=== PATIENT | male | born 1975 | race Caucasian/White ===

== ENCOUNTER → 2017-11-14 | Outpatient (CLI) | payer BC ==
[2017-11-14 11:59] VITALS: BMI 33.7
== END ==
LOC: MNTWWP 09:07
PROVIDERS: ATTEND Internal Medicine
DX: E66.3 Overweight (principal); Z68.33 Body mass index [BMI] 33.0-33.9, adult
CPT/HCPCS: 97802

== ENCOUNTER 2018-07-22 05:55 | Emergency (ER) | payer BC ==
[2018-07-22 06:59] LABS: Appearance,Urine Clear (Clear); Bacteria,Urine Rare /hpf; Bilirubin,Urine Negative (Negative); Blood,Urine Small (Negative); Calcium Oxalate Crystals,Urine Few /hpf; Color,Urine Yellow; Glucose,Urine (UA) Negative (Negative); Ketones,Urine Negative (Negative); Leukocyte Esterase,Urine Negative (Negative); Mucus,Urine Moderate /hpf; Nitrite,Urine Negative (Negative); Protein,Urine Trace (Negative); RBC,Urine 16 /hpf (0-5); Specific Gravity,Urine 1.026 (1.001-1.035); Squamous Epithelial Cell,Urine 1 /hpf (0-4)
[2018-07-22 07:20] LABS: ALT 124 U/L (21-72); AST 166 U/L (17-59); Albumin 3.4 g/dL (3.5-5.0); Alkaline Phosphatase 192 U/L (38-126); Amylase 57 U/L (30-110); Anion Gap 3 mmol/L; Blood Urea Nitrogen 14 mg/dL (9-20); Calcium 8.7 mg/dL (8.4-10.2); Carbon Dioxide 24 mmol/L (22-30); Chloride 111 mmol/L (98-107); Glucose 127 mg/dL (74-99); Lipase 165 U/L (23-300); Potassium 4.1 mmol/L (3.5-5.1); Sodium 138 mmol/L (137-145); Total Bilirubin 2.2 mg/dL (0.2-1.3); Total Protein 6.7 g/dL (6.3-8.2)
[2018-07-22] MEDS ORDERED: HYDROmorphone 1 MG/ML 1 ML SYRINGE IVP STA (07:24)
[2018-07-22] MEDS ORDERED: ONDANSETRON 4 MG/2 ML VIAL IVP STA (07:24)
[2018-07-22] MEDS ORDERED: KETOROLAC 60 MG/2 ML VIAL IVP STA (07:24)
--- NOTE | 2018-07-22 07:24 | XR ---
EXAMINATION TYPE: XR KUB DATE OF EXAM: 07/22/2018 COMPARISON: NONE HISTORY: Left lower quadrant pain TECHNIQUE: One view abdominal series FINDINGS: The osseous structures are intact. The bowel gas pattern is nonspecific. Lung bases are clear. Calc ification overlying the right upper quadrant may represent renal stone. Arthropathy of the hips. IMPRESSION: 1. Nonspecific abdomen with no evidence of obstruction. 2. Right-sided renal calculus suspected. Measuring approximately 5 mm.
--- NOTE | 2018-07-22 07:29 | ED ---
General Adult HPI - General Chief complaint: Abdominal Pain Stated complaint: Lt side of abd pain, groin area pain Time Seen by Provider: 07/22/18 07:00 Source: patient, RN notes reviewed Mode of arrival: ambulatory Limitations: no limitations - History of Present Illness Initial comments: This is a 43-year-old male who comes in complaining of left-sided flank pain radiating to the left testicle. Patient states it started at 2:00 in the morning and the pain is always there but on occasion he gets much worse. Patient states he vomited times one at home and continues to be mildly nauseated. Patient states she's never brings anything like this in the past. Patient states that he is having urinary frequency. Patient denies any hematuria that is noted. Patient states some of the pain does radiate to his back. Patient denies any diarrhea. Patient denies any patient states she does have ulcers colitis. Patient denies any chest pain difficulty breathing first breath per patient denies any recent fever or chills. Patient denies any dysuri a. - Related Data Home Medications Medication Instructions Recorded Confirmed Mesalamine [Lialda] 2.4 gm PO DAILY 10/01/13 07/22/18 Ursodiol 600 mg PO DAILY 10/01/13 07/22/18 Ascorbic Acid [Vitamin C] 500 mg PO DAILY 07/22/18 07/22/18 Calcium Citrate 250 mg PO DAILY 07/22/18 07/22/18 Diphenox-Atrop 2.5-0.025 mg 2 tab PO QID PRN 07/22/18 07/22/18 [Lomotil] Previous Rx's Medication Instructions Recorded Ketorolac [Toradol] 10 mg PO Q6HR #15 tab 07/22/18 Tamsulosin [Flomax] 0.4 mg PO DAILY #5 cap 07/22/18 Allergies Allergy/AdvReac Type Severity Reaction Status Date / Time metronidazole [From Flagyl] Allergy Rash/Hives Verified 07/22/18 07:27 Review of Systems ROS Statement: Those systems with pertinent positive or pertinent negative responses have been documented in the HPI. ROS Other: All systems not noted in ROS Statement are negative. Past Medical History Past Medical History: Blood Disorder, Liver Disease Additional Past Medical History / Comment(s): PRIMARY SCLEROSING CHOANGITIS, CIRRHOSIS. ITP. ULCERATIVE COLITIS. History of Any Multi-Drug Resistant Organisms: None Reported Additional Past Surgical History / Comment(s): CARMELO. RECTAL ABSCESS Past Anesthesia/Blood Transfusion Reactions: No Reported Reaction Past Psychological History: No Psychological Hx Reported Smoking Status: Former smoker Past Alcohol Use History: None Reported Past Drug Use History: None Reported General Exam - General Exam Comments Initial Comments: GENERAL: Patient is well-developed and well-nourished. Patient is nontoxic and well- hydrated and is in moderate distress. ENT: Neck is soft and supple. No significant lymphadenopathy is noted. Oropharynx is clear. Moist mucous membranes. Neck has full range of motion without eliciting any pain. EYES: The sclera were anicteric and conjunctiva were pink and moist. Extraocular movements were intact and pupils were equal round and reactive to light. Eyelids were unremarkable. PULMONARY: Unlabored respirations. Good breath sounds bilaterally. No audible rales rhonchi or wheezing was noted. CARDIOVASCULAR: There is a regular rate and rhythm without any murmurs gallops or rubs. ABDOMEN: Patient has left-sided abdominal pain on palpation there is no rebound. Patient also has some left-sided CVA tenderness SKIN: Skin is clear with no lesions or rashes and otherwise unremarkable. NEUROLOGIC: Patient is alert and oriented x3. Cranial nerves II through XII are grossly intact. Motor and sensory are also intact. Normal speech, volume and content. Symmetrical smile. MUSCULOSKELETAL: Normal extremities with adequate strength and full range of motion. No lower extremity swelling or edema. No calf tenderness. LYMPHATICS: No significant lymphadenopathy is noted PSYCHIATRIC: Normal psychiatric evaluation. Limitations: no limitations Course Vital Signs 07/22/18 05:59 Temperature 98.0 F Pulse Rate 80 Respiratory 20 Rate Blood Pressure 133/76 O2 Sat by Pulse 97 Oximetry Medical Decision Making - Medical Decision Making Patient's CT showed a 3 mm stone with hydronephrosis and hydroureter. Patient also has cirrhosis which she is aware of an hourly being followed by a hep atologist. I will begin to reevaluate the patient he was pain-free at this time. - Lab Data Result diagrams: 07/22/18 06:40 07/22/18 06:40 Lab Results 07/22/18 07/22/18 07/22/18 Range/Units 06:26 06:40 06:40 WBC 6.1 (3.8-10.6) k/uL RBC 4.71 (4.30-5.90) m/uL Hgb 14.2 (13.0-17.5) gm/dL Hct 41.8 (39.0-53.0) % MCV 88.8 (80.0-100.0) fL MCH 30.2 (25.0-35.0) pg MCHC 34.1 (31.0-37.0) g/dL RDW 14.4 (11.5-15.5) % Plt Count 243 (150-450) k/uL Neutrophils % 83 % Lymphocytes % 7 % Monocytes % 8 % Eosinophils % 1 % Basophils % 0 % Neutrophils # 5.1 (1.3-7.7) k/uL Lymphocytes # 0.4 L (1.0-4.8) k/uL Monocytes # 0.5 (0-1.0) k/uL Eosinophils # 0.1 (0-0.7) k/uL Basophils # 0.0 (0-0.2) k/uL Sodium 138 (137-145) mmol/L Potassium 4.1 (3.5-5.1) mmol/L Chloride 111 H (98-107) mmol/L Carbon Dioxide 24 (22-30) mmol/L Anion Gap 3 mmol/L BUN 14 (9-20) mg/dL Creatinine 0.92 (0.66-1.25) mg/dL Est GFR (CKD-EPI)AfAm >90 (>60 ml/min/1.73 sqM) Est GFR (CKD-EPI)NonAf >90 (>60 ml/min/1.73 sqM) Glucose 127 H (74-99) mg/dL Calcium 8.7 (8.4-10.2) mg/dL Total Bilirubin 2.2 H (0.2-1.3) mg/dL AST 166 H (17-59) U/L ALT 124 H (21-72) U/L Alkaline Phosphatase 192 H (38-126) U/L Total Protein 6.7 (6.3-8.2) g/dL Albumin 3.4 L (3.5-5.0) g/dL Amylase 57 (30-110) U/L Lipase 165 (23-300) U/L Urine Color Yellow Urine Appearance Clear (Clear) Urine pH 6.0 (5.0-8.0) Ur Specific [place] 1.026 (1.001-1.035) Urine Protein Trace H (Negative) Urine Glucose (UA) Negative (Negative) Urine Ketones Negative (Negative) Urine Blood Small H (Negative) Urine Nitrite Negative (Negative) Urine Bilirubin Negative (Negative) Urine Urobilinogen 3.0 (<2.0) mg/dL Ur Leukocyte Esterase Negative (Negative) Urine RBC 16 H (0-5) /hpf Urine WBC 3 (0-5) /hpf Ur Squamous Epith Cells 1 (0-4) /hpf Calcium Oxalate Crystal Few H (None) /hpf Urine Bacteria Rare H (None) /hpf Urine Mucus Moderate H (None) /hpf Disposition Clinical Impression: Kidney stone Disposition: HOME SELF-CARE Condition: Good Instructions (If sedation given, give patient instructions): Kidney Stones (ED) Prescriptions: Tamsulosin [Flomax] 0.4 mg PO DAILY #5 cap Ketorolac [Toradol] 10 mg PO Q6HR #15 tab Is patient prescribed a controlled substance at d/c from ED?: No Referrals: Aneudy Bowers MD [Primary Care Provider] - 1-2 days Time of Disposition: 08:46
[2018-07-22 07:42] LABS: Basophils % (A) 0 %; Eosinophils # (A) 0.1 k/uL (0-0.7); Eosinophils % (A) 1 %; HCT 41.8 % (39.0-53.0); HGB 14.2 gm/dL (13.0-17.5); Lymphocytes # (A) 0.4 k/uL (1.0-4.8); Lymphocytes % (A) 7 %; MCH 30.2 pg (25.0-35.0); MCHC 34.1 g/dL (31.0-37.0); MCV 88.8 fL (80.0-100.0); Monocytes # (A) 0.5 k/uL (0-1.0); Monocytes % (A) 8 %; Neutrophils # (A) 5.1 k/uL (1.3-7.7); Neutrophils % (A) 83 %; Platelet Count 243 k/uL (150-450); RBC 4.71 m/uL (4.30-5.90); RDW 14.4 % (11.5-15.5); WBC 6.1 k/uL (3.8-10.6)
--- NOTE | 2018-07-22 08:01 | CT ---
EXAMINATION TYPE: CT abdomen pelvis wo con DATE OF EXAM: 07/22/2018 COMPARISON: None HISTORY: Lt side abd pain and Lt groin pain CT DLP: 938.4 mGycm Automated exposure control for dose reduction was used. TECHNIQUE: Helical acquisition of images was performed from the lung bases through the pelvis. FINDINGS: LUNG BASES: Subsegmental changes at both lung bases. Most likely in the basis of atelectasis. LIVER/GB: Liver is lobulated correlate for cirrhosis. Numerous dilated structures in the abdomen are likely related to varices rather than adenopathy however, no contrast was given. PANCREAS: No significant abnormality is seen. SPLEEN: Spleen is enlarged measuring 19 cm compatible with splenomegaly. ADRENALS: No significant abnormality is seen. KIDNEYS: There are 4 calculi involving the right kidney measuring less than 5 mm and a single punctat e calculus measuring less than 5 mm within the left kidney. There is mild left hydronephrosis and hyd roureter with a 3 mm distal UVJ calcification. ADENOPATHY: None visualized. OSSEOUS STRUCTURES: Arthropathy of the hips. BOWEL: No significant abnormality is seen. OTHER: Aorta of normal caliber. Small fat-containing periumbilical hernia. IMPRESSION: 1. Bilateral nephrolithiasis with mild left hydronephrosis and hydroureter secondary to a distal left ureteral calculus measuring 3 mm. 2. Findings suspicious for hepatic cirrhosis with splenomegaly and large soft tissue masses within th e abdomen likely in the basis of large varices which could be confirmed with postcontrast CT as clini suresh warranted.
[2018-07-22 08:53] VITALS: BP 164/69; PULSE 79; RESP 18; TEMP 97.3
== END 2018-07-22 08:54 | disposition home or self-care (01) ==
LOC: EC 05:55
DX: N13.2 Hydronephrosis with renal and ureteral calculous obstruction (principal); Z87.891 Personal history of nicotine dependence; Z79.899 Other long term (current) drug therapy; Z88.1 Allergy status to other antibiotic agents
CPT/HCPCS: 99284; 96374; 96375 ×2; 36415; 80053; 82150; 83690; 85025; 81001; 74018; 74176; J2405; J1885; J1170

== ENCOUNTER → 2018-08-31 | Outpatient (CLI) | payer BC ==
[2018-08-31 10:15] LABS: INR 1.2 (<1.2); Prothrombin Time 12.3 sec (9.0-12.0)
== END ==
LOC: LABWHC1 09:27
PROVIDERS: ATTEND Surgery
DX: D17.1 Benign lipomatous neoplasm of skin and subcutaneous tissue of trunk (principal)
CPT/HCPCS: 36415; 85610

== ENCOUNTER 2018-09-04 08:46 | Day surgery (SDC) | payer BC ==
[2018-09-03 09:09] VITALS: BMI 33.0
[~2018-09-04 08:46] MED LIST: DEXAMETHASONE SOD PHOSPHATE 10 MG/ML 1 ML VIAL IV ONE; HEPARIN SODIUM,PORCINE 5,000 UNIT/ML 1 ML VIAL SQ ONE; LACTATED RINGERS 1,000 ML IV SCH; LIDOCAINE 1% 20 ML VIAL (10MG/ML) FOR IV START INTRADERMA PRN; MIDAZOLAM 2 MG/2 ML VIAL IV PRN; ONDANSETRON 4 MG/2 ML VIAL IVP ONE; Pre Op ABX Message 1 EACH MISC MISCELLANE ONE; fentaNYL (PF) 50 MCG/ML 2 ML AMP IV PRN
[2018-09-04 09:20] VITALS: RESP 16
--- NOTE | 2018-09-04 09:47 | P.GSHP ---
History of Present Illness H&P Date: 09/04/18 Chief Complaint: Multiple lipomas 43-year-old male seen in the office approximately one month ago. Patient's complaints of multiple lipomas. He has had many removed in the past. They're increasing in size and painful. Past Medical History Past Medical History: Blood Disorder, Liver Disease Additional Past Medical History / Comment(s): PRIMARY SCLEROSING CHOANGITIS, CIRRHOSIS. ITP. ULCERATIVE COLITIS. History of Any Multi-Drug Resistant Organisms: None Reported Additional Past Surgical History / Comment(s): LASIK. RECTAL ABSCESS Past Anesthesia/Blood Transfusion Reactions: No Reported Reaction Smoking Status: Never smoker - Past Family History Mother Family Medical History: No Reported History Medications and Allergies Home Medications Medication Instructions Recorded Confirmed Type Mesalamine [Lialda] 2.4 gm PO DAILY 10/01/13 09/04/18 History Ursodiol 600 mg PO DAILY 10/01/13 09/04/18 History Ascorbic Acid [Vitamin C] 500 mg PO DAILY 07/22/18 09/04/18 History Calcium Citrate 250 mg PO DAILY 07/22/18 09/04/18 History Allergies Allergy/AdvReac Type Severity Reaction Status Date / Time metronidazole [From Flagyl] Allergy Rash/Hives Verified 09/04/18 09:03 Surgical - Exam Vital Signs Temp Pulse Resp BP Pulse Ox 97.4 F L 66 16 154/69 99 09/04/18 09:19 09/04/18 09:19 09/04/18 09:19 09/04/18 09:19 09/04/18 09:19 Physical exam: General: Well-developed, well-nourished HEENT: Normocephalic, sclerae nonicteric Abdomen: Nontender, nondistended Extremities: No edema, multiple lipomatous masses involving the extremities and torso ranging in size from 1-5 cm Neuro: Alert and oriented Assessment and Plan (1) Lipoma Narrative/Plan: Will proceed with lipoma excision. Exact site of lipomas will be marked preoperatively. Risks of bleeding infection and recurrence reviewed. He understands and wishes to proceed. Current Visit: Yes Status: Acute Code(s): D17.9 - BENIGN LIPOMATOUS NEOPLASM, UNSPECIFIED SNOMED Code(s): 15864878
[2018-09-04] MEDS ORDERED: MIDAZOLAM 2 MG/2 ML VIAL ONE (10:25)
[2018-09-04] MEDS ORDERED: PROPOFOL 10 MG/ML 20 ML VIAL IV ONE (10:25)
[2018-09-04] MEDS ORDERED: fentaNYL (PF) 50 MCG/ML 2 ML AMP ONE (10:25)
[2018-09-04] MEDS: HYDROmorphone 0.5 MG/0.5 ML SYRINGE IVP PRN ×5 (12:34→13:10)
[2018-09-04] MEDS ORDERED: NALOXONE 0.4 MG/ML 1 ML VIAL IV PRN (12:35)
[2018-09-04] MEDS ORDERED: HYDROcodone/APAP 5-325MG 1 EACH TAB PO PRN (12:35)
[2018-09-04 12:40] VITALS: TEMP 96.9
--- NOTE | 2018-09-04 12:43 | P.OP ---
Date of Procedure: 09/04/18 Procedure(s) Performed: PREOPERATIVE DIAGNOSIS: Multiple lipomas POSTOPERATIVE DIAGNOSIS: Same PROCEDURE: Excision multiple lipomas with intermediate closure SURGEON: Mariano EBL: 20 mL ANESTHESIA: Gen. COMPLICATIONS: None OPERATIVE PROCEDURE: Patient placed in the supine position. The patient's bilateral arms and anterior torso were prepped and draped sterilely. All of the lipomas were excised using a longitudinal incision over the palpable mass with subcutaneous dissection taking place bluntly and with sparing use of electrocautery. At all sites the intermediate closure took place by reapproximated the subcutaneous tissues using 3-0 Vicryl sutures. The skin was closed at all sites using 4-0 Monocryl sutures. All of the sites were closed using interrupted sutures with the exception of the abdominal wall larger lipoma closed using a running 4-0 Monocryl stitch. Abdominal wall had 2 lipomas r emoved one measuring 5 x 3 cm the other measuring 1.5 x 1.5 cm a chest lipoma was removed measuring 3.5 x 2 cm. Left upper arm had 3 lipomas 2 x 1.5 cm, 2 x 2 centimeter, 2.5 x 1 cm. The left forearm had 2 lipomas 1.5 x 1.5 cm, 3 x 1.5 cm. The right upper arm had 2 lipomas 2 x 1.5cm, 2 x 3 cm. The right forearm at 5 lipomas 2 x 1 cm, 3 x 2 cm, 4 x 3 cm, 1.5 x 1.5 cm, 2 x 2 centimeters. Intermediate closure 24 cm on the arms, 6.5 cm on the chest and abdomen. Skin glue use at all incision sites. DISPOSITION: Stable to recovery room
[2018-09-04] MEDS ORDERED: KETOROLAC 30 MG/ML 1 ML VIAL IVP ONE (14:02)
[2018-09-04] MEDS ORDERED: LACTATED RINGERS 1,000 ML IV ONE (14:11)
[2018-09-04 14:54] VITALS: BP 164/80; PULSE 64
== END 2018-09-04 14:56 | disposition home or self-care (01) ==
LOC: OR 08:46
PROVIDERS: ATTEND Surgery
DX: D17.1 Benign lipomatous neoplasm of skin and subcutaneous tissue of trunk (principal); D17.22 Benign lipomatous neoplasm of skin and subcutaneous tissue of left arm; D17.21 Benign lipomatous neoplasm of skin and subcutaneous tissue of right arm; K51.90 Ulcerative colitis, unspecified, without complications; K83.01 Primary sclerosing cholangitis; Z79.899 Other long term (current) drug therapy; Z88.1 Allergy status to other antibiotic agents
CPT/HCPCS: 11406; 12037; 88304; J2250; J1644; J1100; J2405; J0690; J3010; J1885; J2704; J1170

== ENCOUNTER 2018-10-30 08:25 | Day surgery (SDC) | payer BC ==
[2018-10-29 13:25] VITALS: BMI 32.7
[2018-10-30 08:47] VITALS: TEMP 97.5
[2018-10-30] MEDS ORDERED: LIDOCAINE 1% 20 ML VIAL (10MG/ML) FOR IV START INTRADERMA ONE (08:53)
[2018-10-30] MEDS: LACTATED RINGERS 1,000 ML IV SCH ×2 (08:55→09:27)
[2018-10-30] MEDS ORDERED: PROPOFOL 10 MG/ML 20 ML VIAL IV ONE (09:28)
[2018-10-30] MEDS ORDERED: LIDOCAINE 1% INJ 10MG/ML (20 ML MDV) ONE (09:28)
--- NOTE | 2018-10-30 09:48 | P.PCN ---
Date of Procedure: 10/30/18 Procedure(s) Performed: Brief history: Patient is a pleasant 43-year-old white female, scheduled for an elective upper endoscopy as well as colonoscopy as a part of evaluation of long-standing history of ulcerative colitis and history of liver cirrhosis related to primary sclerosing cholangitis diagnosed a few years ago. He scheduled for an upper endoscopy as part of screening for esophageal varices Procedure performed: Esophagogastroduodenoscopy with biopsy Colonoscopy with random biopsy Preoperative diagnosis: Cirrhosis of the liver/screening for esophageal varices Long-standing history of ulcerative colitis Anesthesia: MAC Procedure: After informed consent was obtained from the patient was brought into the endoscopy unit and IV sedation was administered by anesthesia under continuous monitoring. Initially upper endoscopy was done. The Olympus GF 160 video endoscope was inserted inserted into the mouth and esophagus intubated without any difficulty and was gradually advanced into the stomach and duodenum and carefully examined. The bulb and second part of the duodenum appeared normal. The scope was then withdrawn into the stomach adequately insufflated with air and upon careful examination the antrum had mild gastritis and biopsies were done from this area. The body, cardia and fundus appeared normal. The scope was then withdrawn into the esophagus. The GE junction was located at 40 cm to the incisors. It appeared regular with no erythema erosions or ulcerations. Rest of the esophagus appeared normal. no evidence of esophageal varices. Patient tolerated the procedure well. At this time the patient continued to remain sedation. Initial digital rectal examination was normal. Olympus CF 160 video colonoscope was then inserted into the rectum and gradually advanced to the cecum without any difficulty. Careful examination was performed as the scope was gradually being withdrawn. The prep was excellent. The cecum, ascending colon, transverse colon, descending colon, sigmoid colon and rectum appeared normal. and biopsies were done from the cecum to rectum at every 10 cm intervals to rule out dysplasia. Retroflexion was performed in the rectum and no lesions were noted. Patient tolerated the procedure well. Impression: 1. Upper endoscopy revealed mild antral gastritis but no evidence of esophageal or gastric varices 2. Colonoscopy was essentially within normal limits with no evidence of active colitis or colorectal neoplasia Recommendations: Findings of this examination were discussed with the patient as well as his family. He was advised to follow with the biopsy results. If the biopsy does not show any evidence of dysplasia he can have a repeat colonoscopy in 2 years.
[2018-10-30 10:18] VITALS: BP 116/72; PULSE 71; RESP 16
== END 2018-10-30 11:07 | disposition home or self-care (01) ==
LOC: ORWHC2ENDO 08:25
PROVIDERS: ATTEND Internal Medicine Gastroenterology
DX: K52.9 Noninfective gastroenteritis and colitis, unspecified (principal); K29.50 Unspecified chronic gastritis without bleeding; K83.09 Other cholangitis; K74.60 Unspecified cirrhosis of liver; Z87.19 Personal history of other diseases of the digestive system; Z88.3 Allergy status to other anti-infective agents
CPT/HCPCS: 88305; 45380; 43239; J2001; J2704

== ENCOUNTER 2020-05-19 09:20 | Day surgery (SDC) | payer BC ==
[2020-05-17 15:41] VITALS: BMI 28.3
[2020-05-19 09:53] VITALS: TEMP 98.1
[2020-05-19] MEDS ORDERED: LIDOCAINE 1% (10MG/ML) FOR IV START INTRADERMA ONE (09:54)
[2020-05-19] MEDS ORDERED: LACTATED RINGERS 1,000 ML IV ONE (09:54)
[2020-05-19] MEDS ORDERED: LIDOCAINE 1% INJ 10MG/ML (20 ML MDV) ONE (10:10)
[2020-05-19] MEDS ORDERED: PROPOFOL 10 MG/ML 20 ML VIAL IV ONE (10:10)
--- NOTE | 2020-05-19 10:35 | P.PCN ---
Date of Procedure: 05/19/20 Procedure(s) Performed: Brief history: Patient is a pleasant 45-year-old white male scheduled for an elective upper endoscopy as well as colonoscopy as a part of evaluation of long-standing history of ulcerative colitis and history of primary sclerosing cholangitis last/liver cirrhosis. Last colonoscopy was one and a half years ago. Procedure performed: Esophagogastroduodenoscopy Colonoscopy with random biopsy Preoperative diagnosis: Primary sclerosing cholangitis/cirrhosis of the liver/screening for esophageal varices Long-standing history of ulcerative colitis Anesthesia: MAC Procedure: After informed consent was obtained from the patient was brought into the endoscopy unit and IV sedation was administered by anesthesia under continuous monitoring. Initially upper endoscopy was done. The Olympus GF 160 video endoscope was inserted inserted into the mouth and esophagus intubated without any difficulty and was gradually advanced into the stomach and duodenum and carefully examined. The bulb and second part of the duodenum appeared normal. The scope was then withdrawn into the stomach adequately insufflated with air and upon careful examination the antrum and body, cardia and fundus appeared normal. The scope was then withdrawn into the esophagus. The GE junction was l ocated at 40 cm to the incisors. It appeared regular with no erythema erosions or ulcerations. Rest of the esophagus appeared normal. Patient tolerated the procedure well. At this time the patient continued to remain sedation. Initial digital rectal examination was normal. Olympus CF 160 video colonoscope was then inserted into the rectum and gradually advanced to the cecum without any difficulty. Careful examination was performed as the scope was gradually being withdrawn. The prep was excellent. The cecum, ascending colon, transverse colon, descending colon, sigmoid colon and rectum appeared normal. Random biopsies were done from the cecum to rectum at every 10 cm intervals. Retroflexion was performed in the rectum and no lesions were noted. Patient tolerated the procedure well. Impression: 1. Upper endoscopy revealed no evidence of gastric or esophageal varices. 2. Colonoscopy was within normal limits with no evidence of active colitis or colorectal neoplasia Recommendations: Findings of this examination were discussed with the patient as well as his family. He was advised to follow with the biopsy results. If the biopsy doesn't show any evidence of dysplasia he can have a repeat colonoscopy in, one year as part of surveillance of ulcerative colitis in the setting of primary sclerosing cholangitis.
[2020-05-19 11:01] VITALS: BP 136/72; PULSE 74; RESP 16
== END 2020-05-19 11:08 | disposition home or self-care (01) ==
LOC: ORWHC2ENDO 09:20
PROVIDERS: ATTEND Internal Medicine Gastroenterology
DX: K51.90 Ulcerative colitis, unspecified, without complications (principal); K83.01 Primary sclerosing cholangitis; K74.60 Unspecified cirrhosis of liver; Z88.1 Allergy status to other antibiotic agents; Z79.1 Long term (current) use of non-steroidal anti-inflammatories (NSAID); Z79.899 Other long term (current) drug therapy; Z86.2 Personal history of diseases of the blood and blood-forming organs and certain disorders involving the immune mechanism
CPT/HCPCS: 88305; 45380; 43235; J2001; J2704

== ENCOUNTER 2022-01-28 07:16 | Day surgery (SDC) | payer BC ==
[~2022-01-28 07:16] MED LIST changes: +ACETAMINOPHEN TAB 500 MG TAB PO PRN; -DEXAMETHASONE SOD PHOSPHATE 10 MG/ML 1 ML VIAL IV ONE; +DEXAMETHASONE SOD PHOSPHATE 4 MG/ML 1 ML VIAL IV ONE; -HEPARIN SODIUM,PORCINE 5,000 UNIT/ML 1 ML VIAL SQ ONE; +HEPARIN SODIUM,PORCINE/PF 5,000 UNIT/0.5 ML SYRINGE SQ PRN; +LIDOCAINE 1% (10MG/ML) FOR IV START INTRADERMA PRN; -LIDOCAINE 1% 20 ML VIAL (10MG/ML) FOR IV START INTRADERMA PRN; -MIDAZOLAM 2 MG/2 ML VIAL IV PRN; -fentaNYL (PF) 50 MCG/ML 2 ML AMP IV PRN
--- NOTE | 2022-01-28 07:46 | P.GSHP ---
History of Present Illness H&P Date: 01/28/22 Chief Complaint: Lipoma 46-year-old male known to our service. History of multiple lipoma excision 2019. Patient with history of cirrhosis. Says he has been having increased pain left upper quadrant. He has an enlarged spleen measuring approximately 23 cm. He does have lipomas in the abdominal wall that are tender. He has had low platelets in the past. Patient also describes lipomas in the posterior neck, chest, abdomen, upper and lower extremities. Past Medical History Past Medical History: Blood Disorder, Liver Disease Additional Past Medical History / Comment(s): PRIMARY SCLEROSING CHOANGITIS, CIRRHOSIS. ITP. ULCERATIVE COLITIS. History of Any Multi-Drug Resistant Organisms: None Reported Additional Past Surgical History / Comment(s): dilip eye -LASIK surgery. RECTAL ABSCESS(boil), limpoma removed from mult areas, Past Anesthesia/Blood Transfusion Reactions: No Reported Reaction Additional Past Anesthesia/Blood Transfusion Reaction / Comment(s): no hx blood transfusion Smoking Status: Former smoker - Past Family History Mother Family Medical History: No Reported History Medications and Allergies Home Medications Medication Instructions Recorded Confirmed Type Mesalamine [Lialda] 2.4 gm PO DAILY 10/01/13 05/17/20 History Ursodiol 300 mg PO BID 10/01/13 05/19/20 History Ascorbic Acid [Vitamin C] 1,000 mg PO DAILY 07/22/18 05/17/20 History Calcium Citrate/Vitamin D3 1 each PO DAILY 10/29/18 05/17/20 History [Calcitrate + Vit D Caplet] Allergies Allergy/AdvReac Type Severity Reaction Status Date / Time metronidazole [From Flagyl] Allergy Rash/Hives Verified 05/17/20 15:34 Surgical - Exam Physical exam: General: Well-developed, well-nourished HEENT: Normocephalic, sclerae nonicteric, posterior midline neck with 1.5-2 cm lipomatous mass Chest: Multiple lipomatous masses Abdomen: Nontender, nondistended, multiple lipomatous masses Extremities: No edema, multiple lipomatous masses Neuro: Alert and oriented Assessment and Plan (1) Lipoma Narrative/Plan: 46-year-old male with symptomatic enlarging lipomatous masses. We'll proceed with surgical excision at this time. Patient I will radha out and delineate which lipomatous masses we will excise and this will be documented in the patient's medical record. Risks of bleeding, infection, pain, scarring, recurrence reviewed. He understands and wishes to proceed Current Visit: No Status: Acute Code(s): D17.9 - BENIGN LIPOMATOUS NEOPLASM, UNSPECIFIED SNOMED Code(s): 12070434
[2022-01-28 08:28] VITALS: RESP 16; TEMP 98.3
[2022-01-28 08:31] LABS: Basophils % (A) 1 %; Eosinophils # (A) 0.2 k/uL (0-0.7); Eosinophils % (A) 4 %; HCT 39.1 % (39.0-53.0); HGB 14.4 gm/dL (13.0-17.5); Lymphocytes # (A) 0.8 k/uL (1.0-4.8); Lymphocytes % (A) 18 %; MCH 32.8 pg (25.0-35.0); MCHC 36.9 g/dL (31.0-37.0); MCV 88.9 fL (80.0-100.0); Mean Platelet Volume 7.6; Monocytes # (A) 0.3 k/uL (0-1.0); Monocytes % (A) 7 %; Neutrophils # (A) 3.1 k/uL (1.3-7.7); Neutrophils % (A) 68 %; Platelet Count 278 k/uL (150-450); RBC 4.39 m/uL (4.30-5.90); WBC 4.6 k/uL (3.8-10.6)
[2022-01-28] MEDS ORDERED: LACTATED RINGERS 1,000 ML IV ONE ×2 (08:31→10:20)
[2022-01-28 08:44] LABS: INR 1.2 (<1.2); Prothrombin Time 12.9 sec (9.0-12.0)
[2022-01-28] MEDS ORDERED: ROCURONIUM 10 MG/ML (5 ML VIAL) IV ONE (08:50)
[2022-01-28] MEDS ORDERED: GLYCOPYRROLATE 0.2 MG/ML 2 ML VIAL ONE (08:50)
[2022-01-28] MEDS ORDERED: PROPOFOL 10 MG/ML 20 ML VIAL IV ONE (08:50)
[2022-01-28] MEDS ORDERED: MIDAZOLAM 2 MG/2 ML VIAL ONE (08:50)
[2022-01-28] MEDS ORDERED: LIDOCAINE 2% INJ 20 MG/ML (2 ML VIAL) ONE (08:50)
[2022-01-28] MEDS ORDERED: fentaNYL (PF) 50 MCG/ML 2 ML AMP ONE (08:50)
[2022-01-28] MEDS ORDERED: SUCCINYLCHOLINE CHLORIDE 200 MG/10 ML VIAL IV ONE (08:50)
[2022-01-28] MEDS ORDERED: NEOSTIGMINE 1 MG/ML 10 ML VIAL ONE (08:50)
[2022-01-28] MEDS ORDERED: SODIUM CHLORIDE 0.9% 100 ML with ceFAZolin 2 GM IV ONE ×2 (08:53)
[2022-01-28] MEDS ORDERED: BUPIVACAINE (PF) 0.25% 30 ML VIAL SQ ONE (09:31)
[2022-01-28] MEDS ORDERED: NALOXONE 0.4 MG/ML 1 ML VIAL IV PRN (10:37)
[2022-01-28] MEDS ORDERED: traMADol 50 MG TAB PO PRN (10:37)
[2022-01-28] MEDS: HYDROmorphone 0.5 MG/0.5 ML SYRINGE IVP PRN ×2 (10:42→11:05)
--- NOTE | 2022-01-28 10:50 | P.OP ---
Date of Procedure: 01/28/22 Procedure(s) Performed: PREOPERATIVE DIAGNOSIS: Multiple lipomas POSTOPERATIVE DIAGNOSIS: Same PROCEDURE: Excision multiple lipomas with intermediate closure SURGEON: Mariano EBL: 25 mL ANESTHESIA: Gen. COMPLICATIONS: None OPERATIVE PROCEDURE: Patient placed in the left decubitus position after general anesthesia was achieved. The posterior lesions were addressed at this time. The right posterior neck lipoma was first removed. This measured 2.5 cm in size. Skin incision was made using scalpel. Subcutaneous tissues were dissected using blunt dissection and cautery. Right lower back lipoma then addressed measuring 4 cm. Right posterior upper arm removed measuring 1.5 cm, right posterior forearm removed measuring 2.5 cm. All 4 of these sites were closed using subcutaneous 3-0 Vicryl sutures and 4-0 Monocryl subcuticular sutures. The patient was then placed supine. 7 lipomas removed from the supine position. The right anterior forearm lipoma removed measuring 1.5 cm, left upper arm measuring 2 cm, left forearm measuring 2 cm, chest measuring 2.5 cm, abdominal lipoma measuring 5 cm, left thigh measuring 6 cm, right thigh measuring 6.5 cm all sites again were closed using subcutaneous 3-0 Vicryl sutures and the skin was closed using both intermittent and running 4-0 Monocryl subcuticular sutures. Skin glue and sterile dressings were applied. Intermediate closure lengths of neck measures 2.5 cm, torso and extremities measuring 30 cm in length. DISPOSITION: Stable to recovery room
[2022-01-28] MEDS ORDERED: traMADol 50 MG TAB PO ONE (12:12)
[2022-01-28 12:43] VITALS: BP 152/72; PULSE 64
== END 2022-01-28 13:32 | disposition home or self-care (01) ==
LOC: OR 07:16
PROVIDERS: ATTEND Surgery
DX: D17.1 Benign lipomatous neoplasm of skin and subcutaneous tissue of trunk (principal); D17.21 Benign lipomatous neoplasm of skin and subcutaneous tissue of right arm; D17.23 Benign lipomatous neoplasm of skin and subcutaneous tissue of right leg; K74.60 Unspecified cirrhosis of liver; K51.919 Ulcerative colitis, unspecified with unspecified complications; Z87.891 Personal history of nicotine dependence; Z79.899 Other long term (current) drug therapy; Z88.1 Allergy status to other antibiotic agents
CPT/HCPCS: 88304; 85025; 85610; 21552; 27337; 25075; 21931; J2250; J0330; J1100; J2710; J0690; J2405; J3010; J2704; J1170; J2001

== ENCOUNTER 2022-02-04 22:41 | Observation (INO) | payer BC ==
[2022-02-05] MEDS ORDERED: HYDROmorphone 1 MG/ML 1 ML SYRINGE IVP STA (00:24)
[2022-02-05] MEDS ORDERED: SODIUM CHLORIDE 0.9% 1,000 ML IV STA (00:24)
[2022-02-05] MEDS ORDERED: VANCOMYCIN IV PER PHARMACY 1 EACH MISC MISCELLANE PRN (00:24)
[2022-02-05] MEDS ORDERED: ONDANSETRON 4 MG/2 ML VIAL IVP STA (00:25)
--- NOTE | 2022-02-05 00:29 | ED ---
Neck Injury/Pain HPI - General Chief Complaint: Neck Pain/Injury Stated Complaint: possible infection on neck Time Seen by Provider: 02/05/22 00:09 Source: RN notes reviewed Mode of arrival: ambulatory Limitations: no limitations - History of Present Illness Initial Comments: This is a pleasant 46-year-old male with a history of liver cirrhosis, ITP, ul cerative colitis. Patient presents to the emergency department today stating that he has had increasing neck pain since having a lipoma removal last week by Dr. Quintana. Patient states he had a lipoma removed from his posterior neck. He is on pain medications for about 2 days. He then was doing well. However for the past 2 days he has noted increasing pain to the area, redness, calor. Noted the patient does have a history of MRSA. No headache, no fever or chills, no changes in vision or hearing, no sore throat or difficulty with speech, no chest pain or shortness of breath, no abdominal p ain, no nausea or vomiting, no changes in urination or bowel movements, no numbness or tingling, no extremity pain, no skin rashes or lesions. Past medical, surgical, social, and family history reviewed. MD Complaint: neck pain - Related Data Home Medications Medication Instructions Recorded Confirmed Mesalamine [Lialda] 2.4 gm PO DAILY 10/01/13 01/28/22 Ursodiol 300 mg PO BID 10/01/13 01/28/22 Ascorbic Acid [Vitamin C] 1,000 mg PO DAILY 07/22/18 01/28/22 Calcium Citrate/Vitamin D3 1 each PO DAILY 10/29/18 01/28/22 [Calcitrate + Vit D Caplet] Furosemide [Lasix] 20 mg PO DAILY 01/28/22 01/28/22 Gabapentin 300 mg PO DAILY 01/28/22 01/28/22 Previous Rx's Medication Instructions Recorded traMADol HCl [Ultram] 50 mg PO Q6H PRN #10 tab 01/28/22 Amoxic-Pot Clav 875-125Mg 1 tab PO BID 7 Days #14 tab 02/04/22 [Augmentin 875-125] Allergies Allergy/AdvReac Type Severity Reaction Status Date / Time metronidazole [From Flagyl] Allergy Rash/Hives Verified 02/04/22 22:48 Review of Systems ROS Statement: Those systems with pertinent positive or pertinent negative responses have been documented in the HPI. ROS Other: All systems not noted in ROS Statement are negative. Past Medical History Past Medical History: Blood Disorder, Liver Disease Additional Past Medical History / Comment(s): PRIMARY SCLEROSING CHOANGITIS, CIRRHOSIS. ITP. ULCERATIVE COLITIS. History of Any Multi-Drug Resistant Organisms: MRSA Date of last positivie culture/infection: 2011 MDRO Source:: buttocks Additional Past Surgical History / Comment(s): dilip eye -LASIK surgery. RECTAL ABSCESS(boil), limpoma removed from mult areas, Past Anesthesia/Blood Transfusion Reactions: No Reported Reaction Additional Past Anesthesia/Blood Transfusion Reaction / Comment(s): no hx blood transfusion Past Psychological History: No Psychological Hx Reported Smoking Status: Former smoker Past Alcohol Use History: None Reported Past Drug Use History: None Reported - Past Family History Mother Family Medical History: No Reported History General Exam - General Exam Comments Initial Comments: Patient in distress secondary to posterior neck pain Limitations: no limitations General appearance: alert, in distress Head exam: Present: atraumatic, normocephalic, normal inspection Eye exam: Present: normal appearance, PERRL, EOMI. Absent: scleral icterus, conjunctival injection, periorbital swelling ENT exam: Present: normal exam, mucous membranes moist Neck exam: Present: tenderness (Tenderness to the posterior neck extending down over the left trapezius with associated erythema, no evidence of subcutaneous emphysema). Absent: normal inspection (Healing wound/surgical wound noted to the posterior neck with surrounding erythema. No crepitus. No drainage.), meningismus, full ROM (Range of motion limited by pain), lymphadenopathy Respiratory exam: Present: normal lung sounds bilaterally. Absent: respiratory distress, wheezes, rales, rhonchi, stridor, chest wall tenderness, accessory muscle use Cardiovascular Exam: Present: regular rate, normal rhythm, normal heart sounds. Absent: systolic murmur, diastolic murmur, rubs, gallop, clicks GI/Abdominal exam: Present: soft, normal bowel sounds. Absent: distended, tenderness, guarding, rebound, rigid Extremities exam: Present: normal inspection, full ROM, normal capillary refill. Absent: tenderness, pedal edema, joint swelling, calf tenderness Back exam: Present: normal inspection Neurological exam: Present: alert, oriented X3, CN II-XII intact Psychiatric exam: Present: normal affect, normal mood Skin exam: Present: warm, dry, intact, normal color. Absent: rash Course Vital Signs 02/04/22 22:45 Temperature 99.5 F Pulse Rate 92 Respiratory 18 Rate Blood Pressure 152/77 O2 Sat by Pulse 95 Oximetry - Reevaluation(s) Reevaluation #1: 02/05/22 03:22 Patient reevaluated and still has quite a bit of discomfort to the posterior neck. Discussed all findings with the patient. Patient states that he was in understanding that Dr. Quintana (he spoke to Dr. Quintana by phone yesterday) may have to reopen the incision and draining fluid. Patient concerned about going home since surgery does not have office hours today and is scheduled to be here at [facility] for surgical procedures. She'll be admitted for observation and surgical evaluation in the morning. I did offer initial incision and drainage the patient which he has decided to defer until surgical evaluation. The case was discussed in detail with ED attending physician. Presentation, findings, treatment plan discussed in detail. Revised Dr. Mahmood Medical Decision Making - Medical Decision Making Suspect the patient has a postsurgical infection. Patient has a history of MRSA. We'll cover initially with vancomycin and ceftriaxone. Septic workup initiated. The case was discussed in detail with ED attending physician. Presentation, findings, treatment plan discussed in detail. Customs Agent Dr. Mahmood - Lab Data Result diagrams: 02/05/22 00:43 02/05/22 00:43 Lab Results 02/05/22 02/05/22 02/05/22 Range/Units 00:43 00:43 01:04 WBC 11.0 H (3.8-10.6) k/uL RBC 4.85 (4.30-5.90) m/uL Hgb 16.1 (13.0-17.5) gm/dL Hct 43.7 (39.0-53.0) % MCV 90.1 (80.0-100.0) fL MCH 33.2 (25.0-35.0) pg MCHC 36.8 (31.0-37.0) g/dL RDW 14.0 (11.5-15.5) % Plt Count 368 (150-450) k/uL MPV 7.4 Neutrophils % 81 % Lymphocytes % 9 % Monocytes % 6 % Eosinophils % 2 % Basophils % 1 % Neutrophils # 8.9 H (1.3-7.7) k/uL Lymphocytes # 1.0 (1.0-4.8) k/uL Monocytes # 0.7 (0-1.0) k/uL Eosinophils # 0.2 (0-0.7) k/uL Basophils # 0.1 (0-0.2) k/uL Sodium 135 L (137-145) mmol/L Potassium 3.6 (3.5-5.1) mmol/L Chloride 106 (98-107) mmol/L Carbon Dioxide 18 L (22-30) mmol/L Anion Gap 11 mmol/L BUN 11 (9-20) mg/dL Creatinine 0.84 (0.66-1.25) mg/dL Est GFR (CKD-EPI)AfAm >90 (>60 ml/min/1.73 sqM) Est GFR (CKD-EPI)NonAf >90 (>60 ml/min/1.73 sqM) Glucose 114 H (74-99) mg/dL Plasma Lactic Acid Mark Anthony 1.1 (0.7-2.0) mmol/L Calcium 8.2 L (8.4-10.2) mg/dL Total Bilirubin 4.4 H (0.2-1.3) mg/dL AST 46 (17-59) U/L ALT 39 (4-49) U/L Alkaline Phosphatase 194 H (38-126) U/L C-Reactive Protein 2.4 H (<1.0) mg/dL Total Protein 7.0 (6.3-8.2) g/dL Albumin 3.6 (3.5-5.0) g/dL Disposition Clinical Impression: Postoperative abscess Narrative: Postoperative abscess, posterior neck Disposition: ADMITTED IP TO THIS [facility] Condition: Stable Time of Disposition: 03:26 Decision to Admit Reason: Admit from EC Decision Time: 03:26
[2022-02-05] MEDS ORDERED: VANCOMYCIN 1,750 MG in SODIUM CHLORIDE 0.9% 500 ML 500 ML IVPB ONE (00:30)
[2022-02-05 01:02] LABS: Basophils # (A) 0.1 k/uL (0-0.2); Basophils % (A) 1 %; Eosinophils # (A) 0.2 k/uL (0-0.7); Eosinophils % (A) 2 %; HCT 43.7 % (39.0-53.0); HGB 16.1 gm/dL (13.0-17.5); Lymphocytes % (A) 9 %; MCH 33.2 pg (25.0-35.0); MCHC 36.8 g/dL (31.0-37.0); MCV 90.1 fL (80.0-100.0); Mean Platelet Volume 7.4; Monocytes # (A) 0.7 k/uL (0-1.0); Monocytes % (A) 6 %; Neutrophils # (A) 8.9 k/uL (1.3-7.7); Neutrophils % (A) 81 %; Platelet Count 368 k/uL (150-450); RBC 4.85 m/uL (4.30-5.90)
[2022-02-05 01:22] LABS: ALT 39 U/L (4-49); AST 46 U/L (17-59); African American GFR (CKD) >90 (>60 ml/min/1.73 sqM); Albumin 3.6 g/dL (3.5-5.0); Alkaline Phosphatase 194 U/L (38-126); Anion Gap 11 mmol/L; Blood Urea Nitrogen 11 mg/dL (9-20); C Reactive Protein 2.4 mg/dL (<1.0); Calcium 8.2 mg/dL (8.4-10.2); Carbon Dioxide 18 mmol/L (22-30); Chloride 106 mmol/L (98-107); Glucose 114 mg/dL (74-99); Non-African American GFR(CKD) >90 (>60 ml/min/1.73 sqM); Potassium 3.6 mmol/L (3.5-5.1); Sodium 135 mmol/L (137-145); Total Bilirubin 4.4 mg/dL (0.2-1.3)
--- NOTE | 2022-02-05 03:04 | CT ---
EXAMINATION TYPE: CT soft tissue neck w con DATE OF EXAM: 02/05/2022 COMPARISON: HISTORY: lipoma removed from posterior neck, infection at surgical site. pain, edema CT DLP: 512.6 mGycm Automated exposure control for dose reduction was used. CONTRAST: Performed with IV Contrast, patient injected with 100 mL of Isovue 300. Images obtained from the aortic arch to the top of the frontal sinuses with the IV contrast. There is no sign of mediastinal adenopathy. There is normal branching pattern of the great vessels. T rachea is intact. There is normal contrast opacification of the carotid arteries and jugular veins. T here is enhancement of the vertebral arteries. Epiglottis is normal. Prevertebral soft tissues appear normal. Cervical vertebrae have normal spacing and alignment. No fracture. The tongue appears normal . The tonsils and adenoids appear normal. The parotid glands are symmetric. Submandibular salivary glands are symmetric. No cervical adenopathy . There is some fat stranding in the subcutaneous tissues over the posterior neck in the midline and to wards the left side. There is 3.5 x 1.8 cm fluid collection in the subcutaneous fat that is left of m idline at the C4 level and consistent with an abscess or hematoma. There is adjacent fat stranding. IMPRESSION: Subcutaneous fluid collection that could be abscess or hematoma. There are surrounding inflammatory c hanges.
[2022-02-05] MEDS ORDERED: NALOXONE 0.4 MG/ML 1 ML VIAL IV PRN (03:26)
[2022-02-05] MEDS ORDERED: ONDANSETRON 4 MG/2 ML VIAL IVP PRN (03:26)
[2022-02-05] MEDS ORDERED: PIPERACILLIN-TAZOBACTAM 3.375 GM in SODIUM CHLORIDE 0.9% 100 ML IVPB ONE (03:45)
[2022-02-05] MEDS: HYDROmorphone 1 MG/ML 1 ML SYRINGE IVP PRN ×3 (05:45→23:47)
[2022-02-05] MEDS: SODIUM CHLORIDE 0.9% 1,000 ML IV SCH ×3 (05:46→17:58)
[2022-02-05] MEDS ORDERED: VANCOMYCIN 1,750 MG in SODIUM CHLORIDE 0.9% 500 ML 500 ML IVPB SCH (11:00)
--- NOTE | 2022-02-05 12:36 | P.GSHP ---
History of Present Illness H&P Date: 02/05/22 CHIEF COMPLAINT: Neck pain with abscess HISTORY OF PRESENT ILLNESS: This is a 46-year-old male who presented to the hospital with complaints of increasing posterior neck pain at the incision site where his lipoma was removed. Symptoms started 4 days ago. He reports increase in pain stiffnecked. Pain is radiating into both shoulders bilaterally. He was having fevers at home as his heart and 1.8. On there is increasing redness. The area is starting to drain purulent discharge. Patient had multiple lipomas removed from different areas of the body on 01/28/[address] Quintana. Patient had a computed tomography scan of the neck showing subcutaneous fluid collection that could be abscess or hematoma. Her surrounding inflammatory changes. Fluid collection measuring 3.5 x 1.8 cm. Patient does have a prior history of MRSA infection in right buttocks wound. Denies any history of diabetes. PAST MEDICAL HISTORY: History of liver cirrhosis, ITP and ulcerative colitis PAST SURGICAL HISTORY: See list. MEDICATIONS: See list. ALLERGIES: See list. SOCIAL HISTORY: No illicit drug use. REVIEW OF SYSTEMS: CONSTITUTIONAL: Denies fever or chills. HEENT: Denies blurred vision, vision changes, or eye pain. Denies hemoptysis CARDIOVASCULAR: Denies chest pain or pressure. RESPIRATORY: No shortness of breath. GASTROINTESTINAL: See HPI for pertinent findings HEMATOLOGIC: Denies bleeding disorders. GENITOURINARY: Denies any blood in urine or increased urinary frequency. SKIN: Denies pruitis. Denies rash. PHYSICAL EXAM: VITAL SIGNS: Reviewed GENERAL: Well-developed in no acute distress. HEENT: Posterior aspect of the neck with severe tenderness and erythema that radiates into the shoulders bilaterally. There is area of fluctuance noted and induration. Small amount of purulent discharge noted. ABDOMEN: Soft. Nondistended. Nontender NEUROLOGIC: Alert and oriented. Cranial nerves II through XII grossly intact. Skin: Other incision sites from previous lipoma surgical removal are all clean dry and intact LABORATORY DATA: WBC 11 hemoglobin 16.1 platelets 368 Sodium 135 potassium 3.6 creatinine 0.84 Total bilirubin 4.4 AST 46 ALT 39 Lactic acid 1.1 C-reactive protein 2.9 IMAGING: Computed tomography scan of the neck as stated above ASSESSMENT: 1. Neck abscess at previous lipoma surgical site 2. History of multiple lipomas removed on 01/28/2022 3. Prior history of MRSA infection PLAN: -Further recommendations forthcoming per surgeon -Planning for incision and drainage of neck abscess today -Purulent fluid sent for culture -Continue IV antibiotics -Continue pain medication as needed -Consult medicine service for medical management Physician Phytopathologist note has been reviewed by physician. Signing provider agrees with the documented findings, assessment, and plan of care. I have personally seen and examined the patient, reviewed the [facility] /PAs history, exam and MDM and agree with the assessment and plan as written. Based on total visit time, I have performed more than 50% of the visit. As above: Patient admitted with surgical site infection at recent lipoma excision site posterior neck. Patient with remote history of MRSA. Agree with antibiotic coverage. Will proceed with incision and drainage. Will take cultures at that time. Past Medical History Past Medical History: Blood Disorder, Liver Disease Additional Past Medical History / Comment(s): PRIMARY SCLEROSING CHOANGITIS, CIRRHOSIS. ITP. ULCERATIVE COLITIS. History of Any Multi-Drug Resistant Organisms: MRSA Date of last positivie culture/infection: 2011 MDRO Source:: buttocks Additional Past Surgical History / Comment(s): dilip eye -LASIK surgery. RECTAL ABSCESS(boil), limpoma removed from mult areas, Past Anesthesia/Blood Transfusion Reactions: No Reported Reaction Additional Past Anesthesia/Blood Transfusion Reaction / Comment(s): no hx blood transfusion Past Psychological History: No Psychological Hx Reported Smoking Status: Former smoker Past Alcohol Use History: None Reported Additional Past Alcohol Use History / Comment(s): quit smoking approx 2012, smoked socially Past Drug Use History: None Reported - Past Family History Mother Family Medical History: No Reported History Medications and Allergies Home Medications Medication Instructions Recorded Confirmed Type Mesalamine [Lialda] 2.4 gm PO DAILY 10/01/13 02/05/22 History Ursodiol 300 mg PO BID 10/01/13 02/05/22 History Calcium Citrate/Vitamin D3 1 tab PO DAILY 10/29/18 02/05/22 History [Calcitrate + Vit D Caplet] Furosemide [Lasix] 20 mg PO DAILY PRN 01/28/22 02/05/22 History Gabapentin 300 mg PO BID PRN 01/28/22 02/05/22 History carvediloL [Coreg] 3.125 mg PO HS 02/05/22 02/05/22 History Allergies Allergy/AdvReac Type Severity Reaction Status Date / Time metronidazole [From Flagyl] Allergy Rash/Hives Verified 02/05/22 09:25 Surgical - Exam Vital Signs Temp Pulse Resp BP Pulse Ox 99.5 F 92 18 152/77 95 02/04/22 22:45 02/04/22 22:45 02/04/22 22:45 02/04/22 22:45 02/04/22 22:45 Results - Labs 02/05/22 00:43 02/05/22 00:43 Abnormal Lab Results - Last 24 Hours (Table) 02/05/22 02/05/22 Range/Units 00:43 00:43 WBC 11.0 H (3.8-10.6) k/uL Neutrophils # 8.9 H (1.3-7.7) k/uL Sodium 135 L (137-145) mmol/L Carbon Dioxide 18 L (22-30) mmol/L Glucose 114 H (74-99) mg/dL Calcium 8.2 L (8.4-10.2) mg/dL Total Bilirubin 4.4 H (0.2-1.3) mg/dL Alkaline Phosphatase 194 H (38-126) U/L C-Reactive Protein 2.4 H (<1.0) mg/dL Diabetes panel 02/05/22 Range/Units 00:43 Sodium 135 L (137-145) mmol/L Potassium 3.6 (3.5-5.1) mmol/L Chloride 106 (98-107) mmol/L Carbon Dioxide 18 L (22-30) mmol/L BUN 11 (9-20) mg/dL Creatinine 0.84 (0.66-1.25) mg/dL Glucose 114 H (74-99) mg/dL Calcium 8.2 L (8.4-10.2) mg/dL AST 46 (17-59) U/L ALT 39 (4-49) U/L Alkaline Phosphatase 194 H (38-126) U/L Total Protein 7.0 (6.3-8.2) g/dL Albumin 3.6 (3.5-5.0) g/dL Calcium panel 02/05/22 Range/Units 00:43 Calcium 8.2 L (8.4-10.2) mg/dL Albumin 3.6 (3.5-5.0) g/dL Pituitary panel 02/05/22 Range/Units 00:43 Sodium 135 L (137-145) mmol/L Potassium 3.6 (3.5-5.1) mmol/L Chloride 106 (98-107) mmol/L Carbon Dioxide 18 L (22-30) mmol/L BUN 11 (9-20) mg/dL Creatinine 0.84 (0.66-1.25) mg/dL Glucose 114 H (74-99) mg/dL Calcium 8.2 L (8.4-10.2) mg/dL Adrenal panel 02/05/22 Range/Units 00:43 Sodium 135 L (137-145) mmol/L Potassium 3.6 (3.5-5.1) mmol/L Chloride 106 (98-107) mmol/L Carbon Dioxide 18 L (22-30) mmol/L BUN 11 (9-20) mg/dL Creatinine 0.84 (0.66-1.25) mg/dL Glucose 114 H (74-99) mg/dL Calcium 8.2 L (8.4-10.2) mg/dL Total Bilirubin 4.4 H (0.2-1.3) mg/dL AST 46 (17-59) U/L ALT 39 (4-49) U/L Alkaline Phosphatase 194 H (38-126) U/L Total Protein 7.0 (6.3-8.2) g/dL Albumin 3.6 (3.5-5.0) g/dL
[2022-02-05] MEDS ORDERED: PIPERACILLIN-TAZOBACTAM 3.375 GM in SODIUM CHLORIDE 0.9% 100 ML IVPB SCH (14:00)
[2022-02-05] MEDS ORDERED: GABAPENTIN 300 MG CAP PO PRN (14:21)
--- NOTE | 2022-02-05 14:43 | P.CONS ---
History of Present Illness - Reason for Consult Consult date: 02/05/22 Medical Management Requesting physician: Mik Quintana - History of Present Illness History of Presenting Illness: Patient is a very pleasant 46-year-old male with a past medical history of liver cirrhosis, ITP, primary sclerosing cholangitis, splenomegaly, hypertension and ulcerative colitis. He presented to the emergency department with a chief compl aint of increasing neck pain status post lipoma removal completed 01/28/22. Patient reports wound was healing well until approximately 2 days ago when he began noticing increased pain, redness, and swelling. Patient was concerned because he does have a history of recurrent boils and MRSA infection. Patient underwent full evaluation in the emergency department. He was found to have leukocytosis with WBC count of 11.0 with a left shift with neutrophils of 8.9. Lactic acid normal findings at 1.1. CRP elevated at 2.4. Bilirubin elevated at 4.4 and alkaline phosphatase elevated at 194, chronically elevated however bilirubin is up from previous lab values. CT soft tissue of neck with contrast revealing subcutaneous fluid collection consistent with abscess or hematoma with surrounding inflammatory changes. Patient was started on IV antibiotics vancomycin and Zosyn and was admitted under Gen. surgery team and we were consulted for medical management throughout patient's hospitalization. Patient seen and fully evaluated at bedside. Patient was preparing to go down for surgical incision and drainage. Patient currently reports pain to posterior cervical region of neck is controlled "as long as I do not move". Patient and patient's at bedside tonight patient experiencing any recent fevers, chills, diaphoresis, nausea, vomiting, or any other complaints at this time. Patient's reports patient was recently diagnosed with hypertension and does intermittently have an elevated blood pressure but states he has not been taking his medication at home because blood pressures have been stable. Review of systems: Pertinent positives and negatives as discussed in HPI, a complete review of systems was performed and all other systems are negative. Physical exam: Vital signs reviewed and stable. General: Nontoxic, no distress and appears stated age. Derm: Skin warm and dry, normal coloration for ethnicity. Erythema and mild swelling to posterior cervical region of neck with surrounding fluctuance and induration, draining purulent fluid beneath dressing.. Head: Atraumatic, normocephalic and symmetric. Eyes: EOMs intact, no lid lag, and anicteric sclera Mouth: no lip lesions, mucus membranes moist Cardiovascular: regular rate and rhythm with normal S1S2, no murmur, positive posterior tibial pulses bilaterally, and cap refill < 2 seconds. Lungs: Respirations even, regular, and unlabored on room air. Lungs CTA bilaterally, no rhonchi, no rales, no wheezing, and no accessory muscle usage. Abdominal: soft, nontender to palpation, no guarding, no appreciable organomeg jose Ext: ROM intact. No gross muscle atrophy, scant lower extremity edema, no contractures Neuro: Speech clear, face symmetrical and CN II-XII grossly intact with no noted focal neuro deficits Psych: Alert and oriented to person, place, time, and situation. Appropriate and pleasant affect. Assessment and Plan of Care: Neck abscess to surgical site status post recent lipoma removal History of MRSA -IV antibiotics vancomycin and Zosyn pending further culture results -Follow up on wound culture and blood cultures -Patient scheduled to undergo incision and drainage with Gen. surgery later today. -Symptomatic care and pain management Hyperbilirubinemia secondary to Primary Sclerosing Cholangitis and Liver Cirrhosis -Continue daily medication regimen with Ursodiol. -Caution with all hepatotoxic medications. -Continued close monitoring with repeat a.m. labs Inflammatory bowel disease, history of ulcerative colitis -Continue daily medication regimen with mesalamine Hypertension -Monitor vital signs and continue daily medication regimen with carvedilol Thank you for allowing us to participate in the care of this pleasant patient. Do not hesitate to contact us with questions. Someone can be reached from the [facility] hospitalist group all hours of the day at [phone] or via [employer]. Past Medical History Past Medical History: Blood Disorder, Liver Disease Additional Past Medical History / Comment(s): PRIMARY SCLEROSING CHOANGITIS, CIRRHOSIS. ITP. ULCERATIVE COLITIS. History of Any Multi-Drug Resistant Organisms: MRSA Year Discovered:: 2011 MDRO Source:: buttocks Additional Past Surgical History / Comment(s): dilip eye -LASIK surgery. RECTAL ABSCESS(boil), limpoma removed from mult areas, Past Anesthesia/Blood Transfusion Reactions: No Reported Reaction Additional Past Anesthesia/Blood Transfusion Reaction / Comm: no hx blood transfusion Past Psychological History: No Psychological Hx Reported Smoking Status: Former smoker Past Alcohol Use History: None Reported Additional Past Alcohol Use History / Comment(s): quit smoking approx 2012, smoked socially Past Drug Use History: None Reported - Past Family History Mother Family Medical History: No Reported History Medications and Allergies Home Medications Medication Instructions Recorded Confirmed Type Mesalamine [Lialda] 2.4 gm PO DAILY 10/01/13 02/05/22 History Ursodiol 300 mg PO BID 10/01/13 02/05/22 History Calcium Citrate/Vitamin D3 1 tab PO DAILY 10/29/18 02/05/22 History [Calcitrate + Vit D Caplet] Furosemide [Lasix] 20 mg PO DAILY PRN 01/28/22 02/05/22 History Gabapentin 300 mg PO BID PRN 01/28/22 02/05/22 History carvediloL [Coreg] 3.125 mg PO HS 02/05/22 02/05/22 History Allergies Allergy/AdvReac Type Severity Reaction Status Date / Time metronidazole [From Flagyl] Allergy Rash/Hives Verified 02/05/22 09:25 Physical Exam Vitals: Vital Signs Temp Pulse Pulse Resp BP BP Pulse Ox 02/05/22 11:50 98.4 F 68 18 125/68 97 02/05/22 06:16 97.4 F L 69 18 124/57 95 02/04/22 22:45 99.5 F 92 18 152/77 95 Intake and Output 02/04/22 02/05/22 02/05/22 22:59 06:59 14:59 Other: Weight 108.862 kg 108.862 kg Results CBC & Chem 7: 02/05/22 00:43 02/05/22 00:43 Labs: Abnormal Lab Results - Last 24 Hours (Table) 02/05/22 02/05/22 Range/Units 00:43 00:43 WBC 11.0 H (3.8-10.6) k/uL Neutrophils # 8.9 H (1.3-7.7) k/uL Sodium 135 L (137-145) mmol/L Carbon Dioxide 18 L (22-30) mmol/L Glucose 114 H (74-99) mg/dL Calcium 8.2 L (8.4-10.2) mg/dL Total Bilirubin 4.4 H (0.2-1.3) mg/dL Alkaline Phosphatase 194 H (38-126) U/L C-Reactive Protein 2.4 H (<1.0) mg/dL
[2022-02-05] MEDS ORDERED: LACTATED RINGERS 1,000 ML IV ONE (15:07)
[2022-02-05] MEDS ORDERED: BUPIVACAINE (PF) 0.5% 30 ML VIAL SQ ONE ×2 (15:40→15:59)
[2022-02-05] MEDS ORDERED: ACETAMINOPHEN TAB 325 MG TAB PO PRN (16:13)
[2022-02-05] MEDS ORDERED: IBUPROFEN 600 MG TAB PO PRN (16:13)
--- NOTE | 2022-02-05 16:15 | P.OP ---
Date of Procedure: 02/05/22 Procedure(s) Performed: PREOPERATIVE DIAGNOSIS: Postoperative neck abscess POSTOPERATIVE DIAGNOSIS: Same PROCEDURE: Incision and drainage postoperative posterior neck abscess SURGEON: Mariano EBL: 2 mL ANESTHESIA: Local and sedation COMPLICATIONS: None OPERATIVE PROCEDURE: Patient placed in the left decubitus position. The posterior neck incision located in the midline and horizontal was prepped and draped sterilely. The glue was removed. The previous incision was reopened using primarily blunt dissection. Entrance into a small subcutaneous abscess cavity took place. Cultures were taken. Area was irrigated with saline. Wound was then packed with quarter-inch iodoform gauze. Sterile outer dressings applied. Size of abscess/wound measures 2 x 1.5 x 2 cm DISPOSITION: Stable to recovery room
[2022-02-05] MEDS: PIPERACILLIN-TAZOBACTAM 3.375 GM in SODIUM CHLORIDE 0.9% 100 ML IVPB SCH (17:58)
[2022-02-05] MEDS: HYDROcodone/APAP 7.5-325MG 1 EACH TAB PO PRN (19:25)
[2022-02-05] MEDS: carvediloL 3.125 MG TAB PO SCH (20:29)
[2022-02-05] MEDS: ursodioL 300 MG CAP PO SCH (20:29)
[2022-02-05] MEDS: VANCOMYCIN 1,750 MG in SODIUM CHLORIDE 0.9% 500 ML 500 ML IVPB SCH (22:09)
[2022-02-06] MEDS: PIPERACILLIN-TAZOBACTAM 3.375 GM in SODIUM CHLORIDE 0.9% 100 ML IVPB SCH ×2 (01:22→09:24)
[2022-02-06] MEDS: SODIUM CHLORIDE 0.9% 1,000 ML IV SCH ×3 (02:59→19:13)
[2022-02-06] MEDS: VANCOMYCIN 1,750 MG in SODIUM CHLORIDE 0.9% 500 ML 500 ML IVPB SCH ×3 (05:40→21:20)
[2022-02-06] MEDS: HYDROmorphone 1 MG/ML 1 ML SYRINGE IVP PRN ×3 (05:44→21:43)
[2022-02-06 08:59] LABS: HCT 38.8 % (39.6-50.0); HGB 13.8 g/dL (13.0-17.0); MCH 32.3 pg (27.0-32.0); MCHC 35.6 g/dL (32.0-37.0); MCV 90.9 fL (80.0-97.0); NRBC Per 100 WBC 0 /100 WBCS (0.0-0.0); Platelet Count 313 X 10*3/uL (140-440); RBC 4.27 X 10*6/uL (4.40-5.60); WBC 8.31 X 10*3/uL (4.50-10.00)
[2022-02-06 09:09] LABS: C Reactive Protein 3.8 mg/dL (0.00-0.80)
[2022-02-06 09:14] LABS: African American GFR (CKD) 94.1 (60.0-200.0); Albumin 3.2 g/dL (3.8-4.9); Albumin/Globulin Ratio 1.23 (1.60-3.17); Anion Gap 8.7 mmol/L (10.00-18.00); Blood Urea Nitrogen 15.4 mg/dL (9.0-27.0); Calcium 7.9 mg/dL (8.7-10.3); Carbon Dioxide 22.3 mmol/L (20.0-27.5); Globulin 2.6 g/dL (1.6-3.3); Non-African American GFR(CKD) 81.2 (60.0-200.0); Potassium 3.9 mmol/L (3.5-5.5); Total Bilirubin 2.4 mg/dL (0.30-1.20); Total Protein 5.8 g/dL (6.2-8.2)
[2022-02-06] MEDS: ursodioL 300 MG CAP PO SCH ×2 (09:24→21:20)
[2022-02-06] MEDS: BALSALAZIDE DISODIUM 750 MG CAPSULE PO SCH ×3 (09:24→21:19)
--- NOTE | 2022-02-06 10:09 | P.PN ---
Subjective Progress Note Date: 02/06/22 Hospital Course: Patient is a very pleasant 46-year-old male with a past medical history of liver cirrhosis, ITP, primary sclerosing cholangitis, splenomegaly, hypertension and ulcerative colitis. He presented to the emergency department with a chief complaint of increasing neck pain status post lipoma removal completed 01/28/22. Patient reports wound was healing well until approximately 2 days ago when he began noticing increased pain, redness, and swelling. Patient was concerned because he does have a history of recurrent boils and MRSA infection. Patient underwent full evaluation in the emergency department. He was found to have leukocytosis with WBC count of 11.0 with a left shift with neutrophils of 8.9. Lactic acid normal findings at 1.1. CRP elevated at 2.4. Bilirubin elevated at 4.4 and alkaline phosphatase elevated at 194, chronically elevated however bilirubin is up from previous lab values. CT soft tissue of neck with contrast revealing subcutaneous fluid collection consistent with abscess or hematoma with surrounding inflammatory changes. Patient was started on IV antibiotics vancomycin and Zosyn and was admitted under Gen. surgery team and we were consulted for medical management throughout patient's hospitalization. Physical exam: Patient seen and fully evaluated at bedside this morning. Postoperative dressing to posterior neck is clean, dry, and intact, RN reports packing in place and to be changed shortly. Discussed with patient and patient's at bedside preliminary wound culture results showing positive for MRSA and.infectious disease will be consulted for management of outpatient antibiotics in which patient will require upon discharge. patient's condition otherwise stable at this time. Morning labs reviewed revealing resolution of previously noted leukocytosis with WBC count of 8.31. Bilirubin improving down to 2.4 from previous 4.4. Patient to remain on vancomycin and Zosyn pending final culture and sensitivity reports. Blood cultures showing no growth to date.. Vital signs reviewed and stable. General: Nontoxic, no distress and appears stated age. Derm: Skin warm and dry, normal coloration for ethnicity. Erythema and mild swelling to posterior cervical region of neck with surrounding fluctuance and induration, draining purulent fluid beneath dressing.. Head: Atraumatic, normocephalic and symmetric. Eyes: EOMs intact, no lid lag, and anicteric sclera Mouth: no lip lesions, mucus membranes moist Cardiovascular: regular rate and rhythm with normal S1S2, no murmur, positive posterior tibial pulses bilaterally, and cap refill < 2 seconds. Lungs: Respirations even, regular, and unlabored on room air. Lungs CTA bilaterally, no rhonchi, no rales, no wheezing, and no accessory muscle usage. Abdominal: soft, nontender to palpation, no guarding, no appreciable organomegaly Ext: ROM intact. No gross muscle atrophy, scant lower extremity edema, no contractures Neuro: Speech clear, face symmetrical and CN II-XII grossly intact with no noted focal neuro deficits Psych: Alert and oriented to person, place, time, and situation. Appropriate and pleasant affect. Assessment and Plan of Care: Neck abscess to surgical site status post recent lipoma removal History of MRSA -IV antibiotics vancomycin and Zosyn pending further culture results -Follow up on wound culture and blood cultures, blood cultures showing no growth to date wound culture preliminary positive for MRSA -Infectious disease consult placed. -Patient underwent incision and drainage with Gen. surgery on 02/05/22 -Symptomatic care and pain management Hyperbilirubinemia secondary to Primary Sclerosing Cholangitis and Liver Cirrhosis -Continue daily medication regimen with Ursodiol. -Caution with all hepatotoxic medications. -Continued close monitoring with repeat a.m. labs, bbilirubin levels improved from 4.4 back down to 2.4 which is back at patient's baseline level. Inflammatory bowel disease, history of ulcerative colitis -Continue daily medication regimen with mesalamine Hypertension -Monitor vital signs and continue daily medication regimen with carvedilol Thank you for allowing us to participate in the care of this pleasant patient. Do not hesitate to contact us with questions. Someone can be reached from the [facility] hospitalist group all hours of the day at [phone] or via [employer]. Objective - Vital Signs Vital signs: Vital Signs Temp 98.7 F 02/06/22 07:00 Pulse 76 02/06/22 07:00 Resp 18 02/06/22 07:00 BP 115/62 02/06/22 07:00 Pulse Ox 95 02/06/22 07:00 FiO2 Intake & Output 02/05/22 02/06/22 02/06/22 18:59 06:59 18:59 Intake Total 740 Output Total 1 Balance 739 Weight 108.862 kg Intake: IV 500 Oral 240 Output: Estimated Blood Loss 1 Other: Voiding Method Toilet # Voids 2 0 - Labs CBC & Chem 7: 02/06/22 05:52 02/06/22 05:52 Labs: Abnormal Lab Results - Last 24 Hours (Table) 02/06/22 Range/Units 05:52 RBC 4.27 L (4.40-5.60) X 10*6/uL Hct 38.8 L (39.6-50.0) % MCH 32.3 H (27.0-32.0) pg MPV 9.0 L (9.5-12.2) fL Microbiology - Last 24 Hours (Table) 02/05/22 09:35 Gram Stain - Preliminary Neck Wound Culture - Preliminary 02/05/22 00:41 Blood Culture - Preliminary Blood No Growth after 24 hours 02/05/22 00:25 Blood Culture - Preliminary Blood No Growth after 24 hours 02/05/22 09:35 Anaerobic Culture - Preliminary Neck
[2022-02-06] MEDS: HYDROcodone/APAP 7.5-325MG 1 EACH TAB PO PRN ×2 (10:48→19:56)
--- NOTE | 2022-02-06 10:52 | P.PN ---
Subjective Progress Note Date: 02/06/22 CHIEF COMPLAINT: Neck abscess HISTORY OF PRESENT ILLNESS: Patient is postop day #1 status post incision and drainage of postoperative posterior neck abscess. Patient still complains of pain at the abscess site and into the left shoulder. However, pain is loss since her seizure. Area is packed. He has been requiring the IV Dilaudid. Afebrile. WBC is down from 11-8.31 hemoglobin 13.8 platelets are 13 sodium is 138 potassium 3.9 creatinine 1.1 wound culture growing presumptive MRSA PHYSICAL EXAM: VITAL SIGNS: Reviewed. GENERAL: Well-developed in no acute distress. HEENT: Neck sanguinous drainage on the gauze pad. Iodoform packing noted. Decrease in swelling. Patient is oil process stillman with palpation in the posterior neck and into the left trapezius muscle. There is still erythema in the neck and into the left trapezius area. Right trapezius muscle not as tender as yesterday ABDOMEN: Soft. Nondistended. Nontender. NEUROLOGIC: Alert and oriented. Cranial nerves II through XII grossly intact. ASSESSMENT: 1. Postoperative posterior neck abscess status post incision and drainage PLAN: -Continue local wound care -Patient to shower and have packing changed to Aquacel silver today -Continue antibiotics -Continue pain management -GI prophylaxis Pepcid and DVT prophylaxis subcu heparin Physician Major Account Manager note has been reviewed by physician. Signing provider agrees with the documented findings, assessment, and plan of care. I have personally seen and examined the patient, reviewed the COLOR ARTIST /PAs history, exam and MDM and agree with the assessment and plan as written. Based on total visit time, I have performed more than 50% of the visit. As above: Patient feels better today. Cultures preliminarily are suggesting MRSA. Continue IV antibiotics. Continue local wound care. Objective - Vital Signs Vital signs: Vital Signs Temp 98.7 F 02/06/22 07:00 Pulse 76 02/06/22 07:00 Resp 18 02/06/22 07:00 BP 115/62 02/06/22 07:00 Pulse Ox 95 02/06/22 07:00 FiO2 Intake & Output 02/05/22 02/06/22 02/06/22 18:59 06:59 18:59 Intake Total 740 240 Output Total 1 Balance 739 240 Weight 108.862 kg Intake: IV 500 Oral 240 240 Output: Estimated Blood Loss 1 Other: Voiding Method Toilet # Voids 2 0 - Labs CBC & Chem 7: 02/06/22 05:52 02/06/22 05:52 Labs: Abnormal Lab Results - Last 24 Hours (Table) 02/06/22 02/06/22 Range/Units 05:52 05:52 RBC 4.27 L (4.40-5.60) X 10*6/uL Hct 38.8 L (39.6-50.0) % MCH 32.3 H (27.0-32.0) pg MPV 9.0 L (9.5-12.2) fL Anion Gap 8.70 L (10.00-18.00) mmol/L Calcium 7.9 L (8.7-10.3) mg/dL Total Bilirubin 2.40 H (0.30-1.20) mg/dL Alkaline Phosphatase 154 H (41-126) U/L C-Reactive Protein 3.80 H (0.00-0.80) mg/dL Total Protein 5.8 L (6.2-8.2) g/dL Albumin 3.2 L (3.8-4.9) g/dL Albumin/Globulin Ratio 1.23 L (1.60-3.17) g/dL Microbiology - Last 24 Hours (Table) 02/05/22 09:35 Gram Stain - Preliminary Neck Wound Culture - Preliminary Presumptive MRSA 02/05/22 00:41 Blood Culture - Preliminary Blood No Growth after 24 hours 02/05/22 00:25 Blood Culture - Preliminary Blood No Growth after 24 hours 02/05/22 09:35 Anaerobic Culture - Preliminary Neck
[2022-02-06] MEDS: FAMOTIDINE 20 MG TAB PO SCH ×2 (12:32→21:20)
[2022-02-06] MEDS ORDERED: VANCOMYCIN TROUGH DUE 1 EACH MISC MISCELLANE ONE (13:15)
[2022-02-06] MEDS: carvediloL 3.125 MG TAB PO SCH (19:57)
[2022-02-06] MEDS: HEPARIN SODIUM,PORCINE/PF 5,000 UNIT/0.5 ML SYRINGE SQ SCH (21:20)
--- NOTE | 2022-02-07 00:06 | P.CONS ---
History of Present Illness - Reason for Consult Consult date: 02/06/22 - History of Present Illness Patient is a 46-year-old male with a past medical history significant for lipoma resection from his posterior neck area about a week ago patient mention he was doing well however on Friday that is 2 days prior to presentation to the hospital he developing increasing pain and swelling and redness to the posterior neck incision patient mention he did call his surgeon on Friday who started the patient on Augmentin however the patient did have persistent pain swelling and redness which was getting worse patient described the pain to be throbbing almost 10 out of 10 in severity and the patient did have some low- grade fever did not with the symptom the patient presented to hospital on 02/05/2022 on arrival to the ER the patient was afebrile he did have white count of 11,000 with a left shift kidney function has been normal liver exams are normal CRP was elevated patient did have a soft tissue neck CT subcutaneous fluid collection which being abscess or hematoma patient was subsequently taken to the OR that evening and the patient did have a drainage of the abscess size of the abscess was 2X1.5X 2 cm cultures are now showing presumptive MRSA patient currently being treated with vancomycin and Zosyn infectious disease was consulted this evening for further management of antibiotic therapy Past Medical History Past Medical History: Blood Disorder, Liver Disease Additional Past Medical History / Comment(s): PRIMARY SCLEROSING CHOANGITIS, CIRRHOSIS. ITP. ULCERATIVE COLITIS. History of Any Multi-Drug Resistant Organisms: MRSA Year Discovered:: 2011 MDRO Source:: buttocks Additional Past Surgical History / Comment(s): dilip eye -LASIK surgery. RECTAL ABSCESS(boil), limpoma removed from mult areas, Past Anesthesia/Blood Transfusion Reactions: No Reported Reaction Additional Past Anesthesia/Blood Transfusion Reaction / Comm: no hx blood transfusion Past Psychological History: No Psychological Hx Reported Smoking Status: Former smoker Past Alcohol Use History: None Reported Additional Past Alcohol Use History / Comment(s): quit smoking approx moked socially Past Drug Use History: None Reported - Past Family History Mother Family Medical History: No Reported History Medications and Allergies Home Medications Medication Instructions Recorded Confirmed Type Mesalamine [Lialda] 2.4 gm PO DAILY 10/01/13 02/05/22 History Ursodiol 300 mg PO BID 10/01/13 02/05/22 History Calcium Citrate/Vitamin D3 1 tab PO DAILY 10/29/18 02/05/22 History [Calcitrate + Vit D Caplet] Furosemide [Lasix] 20 mg PO DAILY PRN 01/28/22 02/05/22 History Gabapentin 300 mg PO BID PRN 01/28/22 02/05/22 History carvediloL [Coreg] 3.125 mg PO HS 02/05/22 02/05/22 History Allergies Allergy/AdvReac Type Severity Reaction Status Date / Time metronidazole [From Flagyl] Allergy Rash/Hives Verified 02/05/22 09:25 Physical Exam Vitals: Vital Signs Temp Pulse Pulse Resp BP Pulse Ox 02/06/22 07:00 98.7 F 76 18 115/62 95 02/06/22 06:54 98.7 F 71 16 117/69 95 02/06/22 03:14 98.1 F 68 17 124/64 94 L 02/05/22 20:28 98.1 F 72 18 132/64 95 02/05/22 18:15 75 125/69 96 02/05/22 18:00 70 126/71 95 02/05/22 17:44 66 129/71 96 02/05/22 17:29 68 129/71 96 02/05/22 17:14 98.6 F 67 122/69 96 02/05/22 16:45 67 16 105/53 94 L 02/05/22 16:30 65 16 131/58 94 L 02/05/22 16:23 98.4 F 67 16 131/58 94 L Intake and Output 02/06/22 02/06/22 02/06/22 06:59 14:59 22:59 Intake Total 480 Balance 480 Intake: Oral 480 Other: # Voids 2 2 Results CBC & Chem 7: 02/06/22 05:52 02/06/22 05:52 Labs: Abnormal Lab Results - Last 24 Hours (Table) 02/06/22 02/06/22 Range/Units 05:52 05:52 RBC 4.27 L (4.40-5.60) X 10*6/uL Hct 38.8 L (39.6-50.0) % MCH 32.3 H (27.0-32.0) pg MPV 9.0 L (9.5-12.2) fL Anion Gap 8.70 L (10.00-18.00) mmol/L Calcium 7.9 L (8.7-10.3) mg/dL Total Bilirubin 2.40 H (0.30-1.20) mg/dL Alkaline Phosphatase 154 H (41-126) U/L C-Reactive Protein 3.80 H (0.00-0.80) mg/dL Total Protein 5.8 L (6.2-8.2) g/dL Albumin 3.2 L (3.8-4.9) g/dL Albumin/Globulin Ratio 1.23 L (1.60-3.17) g/dL Microbiology - Last 24 Hours (Table) 10 09:35 Gram Stain - Preliminary Neck Wound Culture - Preliminary Presumptive MRSA 02/05/22 00:41 Blood Culture - Preliminary Blood No Growth after 24 hours 02/05/22 00:25 Blood Culture - Preliminary Blood No Growth after 24 hours 02/05/22 09:35 Anaerobic Culture - Preliminary Neck Assessment and Plan Plan: 1patient with the posterior neck surgical site infection in this patient who did have a recent lipoma resection with development of an abscess status post surgical drainage culture with presumptive MRSA, patient with no fever and blood culture has been negative. 2vancomycin pharmacy to dose target trough of 15 while watching kidney function and vancomycin trough closely. 3discontinue Zosyn. 4local wound care with Aquacel packing of the wound. 5to continue with the vancomycin another 24 to 48 hours before transitioning to oral antibiotics depending upon the sensitivity. We will follow on clinical condition and cultures to further adjust medication if needed Thank you for this consultation will follow this patient along with you Time with Patient: Greater than 30
[2022-02-07] MEDS: SODIUM CHLORIDE 0.9% 1,000 ML IV SCH ×3 (01:56→13:01)
[2022-02-07] MEDS: VANCOMYCIN 1,750 MG in SODIUM CHLORIDE 0.9% 500 ML 500 ML IVPB SCH ×2 (05:42→14:37)
[2022-02-07 06:16] LABS: ALT 25 U/L (4-49); AST 34 U/L (17-59); African American GFR (CKD) >90 (>60 ml/min/1.73 sqM); Albumin 2.5 g/dL (3.5-5.0); Albumin/Globulin Ratio 0.9; Alkaline Phosphatase 122 U/L (38-126); Anion Gap 5 mmol/L; Blood Urea Nitrogen 13 mg/dL (9-20); Calcium 7.4 mg/dL (8.4-10.2); Carbon Dioxide 24 mmol/L (22-30); Chloride 109 mmol/L (98-107); Globulin 2.7 g/dL; Glucose 84 mg/dL (74-99); Non-African American GFR(CKD) >90 (>60 ml/min/1.73 sqM); Sodium 138 mmol/L (137-145); Total Bilirubin 1.8 mg/dL (0.2-1.3); Total Protein 5.2 g/dL (6.3-8.2)
[2022-02-07 07:58] VITALS: RESP 18
[2022-02-07 09:05] LABS: HCT 34.7 % (39.6-50.0); HGB 12.1 g/dL (13.0-17.0); MCH 32.3 pg (27.0-32.0); MCHC 34.9 g/dL (32.0-37.0); MCV 92.5 fL (80.0-97.0); Mean Platelet Volume 9.5 fL (9.5-12.2); NRBC Per 100 WBC 0 /100 WBCS (0.0-0.0); Platelet Count 297 X 10*3/uL (140-440); RBC 3.75 X 10*6/uL (4.40-5.60); RDW 13.9 % (11.5-14.5)
[2022-02-07] MEDS: HEPARIN SODIUM,PORCINE/PF 5,000 UNIT/0.5 ML SYRINGE SQ SCH (09:09)
[2022-02-07] MEDS: HYDROcodone/APAP 7.5-325MG 1 EACH TAB PO PRN (09:09)
[2022-02-07] MEDS: FAMOTIDINE 20 MG TAB PO SCH (09:10)
[2022-02-07] MEDS: BALSALAZIDE DISODIUM 750 MG CAPSULE PO SCH (09:10)
[2022-02-07] MEDS: ursodioL 300 MG CAP PO SCH (09:10)
[2022-02-07] MEDS: HYDROmorphone 1 MG/ML 1 ML SYRINGE IVP PRN (11:43)
--- NOTE | 2022-02-07 13:38 | P.PN ---
Subjective Progress Note Date: 02/07/22 Hospital Course: Patient is a very pleasant 46-year-old male with a past medical history of liver cirrhosis, ITP, primary sclerosing cholangitis, splenomegaly, hypertension and ulcerative colitis. He presented to the emergency department with a chief complaint of increasing neck pain status post lipoma removal completed 01/28/22. Patient reports wound was healing well until approximately 2 days ago when he began noticing increased pain, redness, and swelling. Patient was concerned because he does have a history of recurrent boils and MRSA infection. Patient underwent full evaluation in the emergency department. He was found to have leukocytosis with WBC count of 11.0 with a left shift with neutrophils of 8.9. Lactic acid normal findings at 1.1. CRP elevated at 2.4. Bilirubin elevated at 4.4 and alkaline phosphatase elevated at 194, chronically elevated however bilirubin is up from previous lab values. CT soft tissue of neck with contrast revealing subcutaneous fluid collection consistent with abscess or hematoma with surrounding inflammatory changes. Patient was started on IV antibiotics vancomycin and Zosyn and was admitted under Gen. surgery team and we were consulted for medical management throughout patient's hospitalization. Physical exam: Patient seen and fully evaluated at bedside this morning. Postoperative dressing to posterior neck is clean, dry, and intact, blood cultures showing no growth 48 hours and preliminary wound cultures remain positive for MRSA awaiting final culture results. Infectious disease evaluated, Zosyn was discontinued and patient to continue with vancomycin pending final culture and sensitivity report. Bilirubin improved and now down to 1.8. Patient denies having any other complaints or needs at this time. Pending final culture and sensitivity report patient will likely discharge within the next 24 hours once cleared by primary admitting general surgery team. Vital signs reviewed and stable. General: Nontoxic, no distress and appears stated age. Derm: Skin warm and dry, normal coloration for ethnicity. Erythema and mild swelling to posterior cervical region of neck with surrounding fluctuance and induration, draining purulent fluid beneath dressing.. Head: Atraumatic, normocephalic and symmetric. Eyes: EOMs intact, no lid lag, and anicteric sclera Mouth: no lip lesions, mucus membranes moist Cardiovascular: regular rate and rhythm with normal S1S2, no murmur, positive posterior tibial pulses bilaterally, and cap refill < 2 seconds. Lungs: Respirations even, regular, and unlabored on room air. Lungs CTA bilaterally, no rhonchi, no rales, no wheezing, and no accessory muscle usage. Abdominal: soft, nontender to palpation, no guarding, no appreciable organomegaly Ext: ROM intact. No gross muscle atrophy, scant lower extremity edema, no contractures Neuro: Speech clear, face symmetrical and CN II-XII grossly intact with no noted focal neuro deficits Psych: Alert and oriented to person, place, time, and situation. Appropriate and pleasant affect. Assessment and Plan of Care: Neck abscess to surgical site status post recent lipoma removal History of MRSA -IV antibiotics vancomycin pending final culture and sensitivity report. -Follow up on wound culture and blood cultures, blood cultures showing no growth to date wound culture preliminary positive for MRSA -Infectious disease following -Patient underwent incision and drainage with Gen. surgery on 02/05/22 -Symptomatic care and pain management Hyperbilirubinemia secondary to Primary Sclerosing Cholangitis and Liver Cirrhosis -Continue daily medication regimen with Ursodiol. -Caution with all hepatotoxic medications. Inflammatory bowel disease, history of ulcerative colitis -Continue daily medication regimen with mesalamine Hypertension -Monitor vital signs and continue daily medication regimen with carvedilol Thank you for allowing us to participate in the care of this pleasant patient. Do not hesitate to contact us with questions. Someone can be reached from the [facility] hospitalist group all hours of the day at [phone] or via [employer]. I reviewed the documentation as provided by the DARWIN above, who is the original author of this note. I agree with the documented assessment and plan, with the following changes: none Objective - Vital Signs Vital signs: Vital Signs Temp 98.4 F 02/07/22 07:00 Pulse 70 02/07/22 07:00 Resp 18 02/07/22 07:00 BP 122/72 02/07/22 07:00 Pulse Ox 93 L 02/07/22 07:00 FiO2 Intake & Output 02/06/22 02/07/22 02/07/22 18:59 06:59 18:59 Intake Total 720 Balance 720 Intake: Oral 720 Other: Voiding Method Toilet Toilet # Voids 2 2 - Labs CBC & Chem 7: 02/07/22 05:37 02/07/22 05:37 Labs: Abnormal Lab Results - Last 24 Hours (Table) 02/06/22 02/06/22 02/07/22 Range/Units 05:52 05:52 05:37 RBC 4.27 L (4.40-5.60) X 10*6/uL Hct 38.8 L (39.6-50.0) % MCH 32.3 H (27.0-32.0) pg MPV 9.0 L (9.5-12.2) fL Chloride 109 H (98-107) mmol/L Anion Gap 8.70 L (10.00-18.00) mmol/L Calcium 7.9 L 7.4 L (8.7-10.3) mg/dL Total Bilirubin 2.40 H 1.8 H (0.30-1.20) mg/dL Alkaline Phosphatase 154 H (41-126) U/L C-Reactive Protein 3.80 H (0.00-0.80) mg/dL Total Protein 5.8 L 5.2 L (6.2-8.2) g/dL Albumin 3.2 L 2.5 L (3.8-4.9) g/dL Albumin/Globulin Ratio 1.23 L (1.60-3.17) g/dL Microbiology - Last 24 Hours (Table) 02/05/22 00:41 Blood Culture - Preliminary Blood No Growth after 48 hours 02/05/22 00:25 Blood Culture - Preliminary Blood No Growth after 48 hours 02/05/22 09:35 Gram Stain - Preliminary Neck Wound Culture - Preliminary Presumptive MRSA
--- NOTE | 2022-02-07 13:46 | P.DS ---
Providers Date of admission: 02/05/22 03:43 Expected date of discharge: 02/07/22 Attending physician: Mik Quintana Consults: 02/05/22 10:52 Consult Physician Routine Consulting Provider: Danika Brooks Consult Reason/Comments: medical management Do you want consulting provider notified?: Yes 02/06/22 15:55 Consult Physician Routine Consulting Provider: Saritha Nuñez Consult Reason/Comments: post-op wound infection w/MRSA, management of outpatient abx and follow up Do you want consulting provider notified?: Yes Primary care physician: Ivan Vásquez [facility] Course: Discharge diagnosis 1. Postoperative posterior neck abscess status post incision and drainage Hospital course This is a 46-year-old male who presented to the hospital with complaints of increasing posterior neck pain at the incision site where his lipoma was removed. Patient is status post incision and drainage of the neck abscess. Culture did grow MRSA. Patient seen by infectious disease and medical service. Recommending Bactrim at discharge and to continue local wound care with Aquacel silver dressing. Patient's pain is controlled. She is afebrile. He is tolerating diet. He is up and ambulating. He is stable for discharge. Please refer to chart for any further details. Physician Director Of Quality Improvement note has been reviewed by physician. Signing provider agrees with the documented findings, assessment, and plan of care. I have personally seen and examined the patient, reviewed the ROAD CREW MEMBER /PAs history, exam and MDM and agree with the assessment and plan as written. Based on total visit time, I have performed more than 50% of the visit. As above: Patient doing well today. Pain is much improved. Sensitivities from recent culture shows susceptibility to Bactrim. Will plan discharge today if cleared by infectious disease. Follow-up one week. Patient Condition at Discharge: Stable Plan - Discharge Summary Discharge Rx Participant: Yes New Discharge Prescriptions: New Sulfamethox-Tmp 800-160Mg [Bactrim DS 800-160 mg] 1 tab PO Q12HR #20 tab HYDROcodone/APAP 7.5-325MG [Nuevo 7.5-325] 1 tab PO Q6HR PRN 3 Days #12 tab PRN Reason: Pain Continue Mesalamine [Lialda] 2.4 gm PO DAILY Ursodiol 300 mg PO BID Calcium Citrate/Vitamin D3 [Calcitrate + Vit D Caplet] 1 tab PO DAILY Furosemide [Lasix] 20 mg PO DAILY PRN PRN Reason: Edema Gabapentin 300 mg PO BID PRN PRN Reason: Pain carvediloL [Coreg] 3.125 mg PO HS Discharge Medication List Mesalamine [Lialda] 2.4 gm PO DAILY 10/01/13 [History] Ursodiol 300 mg PO BID 10/01/13 [History] Calcium Citrate/Vitamin D3 [Calcitrate + Vit D Caplet] 1 tab PO DAILY 10/29/18 [History] Furosemide [Lasix] 20 mg PO DAILY PRN 01/28/22 [History] Gabapentin 300 mg PO BID PRN 01/28/22 [History] carvediloL [Coreg] 3.125 mg PO HS 02/05/22 [History] HYDROcodone/APAP 7.5-325MG [Nuevo 7.5-325] 1 tab PO Q6HR PRN 3 Days #12 tab 02/07/22 [Rx] Sulfamethox-Tmp 800-160Mg [Bactrim DS 800-160 mg] 1 tab PO Q12HR #20 tab [Rx] Follow up Appointment(s)/Referral(s): Mik Quintana MD [Medical Doctor] - 02/13/22 2:45 pm [facility] [NON-STAFF] - 1 Week Activity/Diet/Wound Care/Special Instructions: Aquacel silver packing of the wound change every 48 hour, follow-up with Dr. Nuñez in the wound care center next week, call [phone] to make an appointment No driving while taking Nuevo Shower daily. No soaking or tub baths for 2 weeks Discharge Disposition: HOME SELF-CARE
[2022-02-07 14:02] VITALS: BP 127/65; PULSE 63; TEMP 98.1
== END 2022-02-07 16:20 | disposition home or self-care (01) ==
LOC: EC 22:41 → 6NMEDSUR 02-05 03:43
PROVIDERS: ADMIT Surgery; ATTEND Surgery
DX: T81.49XA Infection following a procedure, other surgical site, initial encounter (principal); L02.11 Cutaneous abscess of neck; B95.62 Methicillin resistant Staphylococcus aureus infection as the cause of diseases classified elsewhere; K74.60 Unspecified cirrhosis of liver; D69.3 Immune thrombocytopenic purpura; K83.01 Primary sclerosing cholangitis; I10 Essential (primary) hypertension; E80.6 Other disorders of bilirubin metabolism; K58.9 Irritable bowel syndrome, unspecified; Z86.14 Personal history of Methicillin resistant Staphylococcus aureus infection; Z87.891 Personal history of nicotine dependence; Z79.899 Other long term (current) drug therapy; Z88.1 Allergy status to other antibiotic agents
CPT/HCPCS: 96365; 96366; 96375; 99285; 36415; 80053 ×3; 83605; 85025; 85027 ×2; 80202; 86140 ×2; 87040; 87070; 87205; 87075; 87077; 87186; 70491; 10180; G0378 ×3; J2543 ×2; J3370 ×3; J2405; J0696; J1170 ×3; Q9967; J1644 ×2

== ENCOUNTER 2023-05-11 13:19 | Emergency (ER) | payer BC ==
[2023-05-11] MEDS ORDERED: HYDROmorphone 1 MG/ML 1 ML SYRINGE IVP STA ×3 (13:52→18:23)
--- NOTE | 2023-05-11 14:04 | ED ---
General Adult HPI - General Source: patient, RN notes reviewed, old records reviewed Mode of arrival: ambulatory Limitations: no limitations <Elliot Black - Last Filed: 05/13/23 20:21> - General Source: RN notes reviewed, old records reviewed Mode of arrival: ambulatory Limitations: no limitations - History of Present Illness -: hour(s) Quality: burning, stabbing, aching Consistency: constant Improves with: none Worsens with: none Treatments Prior to Arrival: none <Rafael Davis - Last Filed: 05/19/23 09:51> - General Chief complaint: Chest Pain Stated complaint: L side chest pain ROX Time Seen by Provider: 05/11/23 13:26 - History of Present Illness Initial comments: 47-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 Symptoms began several hours prior to arrival. No known cardiac disease. Patient does report increased pain with deep inspiration and pain in the left upper abdomen. He has a history of splenomegaly. He follows with [facility] regarding his liver disease. He denies alcohol consumption. Denies fever. (Elliot Black) This is a 47-year-old male to the emergency department for evaluation of severe abdominal pain with severe left-sided back pain flank pain. Patient had sudden onset of pain today increased pain with a deep breath increased pain with movement going into his left shoulder. (Rafael Davis) - Related Data Home Medications Medication Instructions Recorded Confirmed Ursodiol 300 mg PO BID 10/01/13 05/11/23 Calcium Citrate/Vitamin D3 1 tab PO DAILY 10/29/18 05/11/23 [Calcitrate + Vit D Caplet] Furosemide [Lasix] 40 mg PO DAILY 01/28/22 05/11/23 Ascorbic Acid [Vitamin C] 2,000 mg PO DAILY 06/04/22 05/11/23 Mesalamine [Lialda] 2.4 gm PO DAILY 06/04/22 05/11/23 Eplerenone [Inspra] 50 mg PO DAILY 05/11/23 05/11/23 Lactulose [Constulose] 10 gm PO DAILY 05/11/23 05/11/23 Allergies Allergy/AdvReac Type Severity Reaction Status Date / Time metronidazole [From Flagyl] Allergy Rash/Hives Verified 05/11/23 15:43 Review of Systems ROS Other: All systems not noted in ROS Statement are negative. <WayneElliot Sandra - Last Filed: 05/13/23 20:21> ROS Other: All systems not noted in ROS Statement are negative. <Rafael Davis - Last Filed: 05/19/23 09:51> ROS Statement: Those systems with pertinent positive or pertinent negative responses have been documented in the HPI. Past Medical History Past Medical History: Blood Disorder, Liver Disease Additional Past Medical History / Comment(s): PRIMARY SCLEROSING CHOANGITIS, CIRRHOSIS. ITP. ULCERATIVE COLITIS. enlarge spleen History of Any Multi-Drug Resistant Organisms: MRSA Date of last positivie culture/infection: 02/05/22 MDRO Source:: Neck Additional Past Surgical History / Comment(s): dilip eye -LASIK surgery. RECTAL ABSCESS, lipoma removed from mult areas Past Anesthesia/Blood Transfusion Reactions: No Reported Reaction Additional Past Anesthesia/Blood Transfusion Reaction / Comment(s): no hx blood transfusion Past Psychological History: No Psychological Hx Reported Smoking Status: Former smoker Past Alcohol Use History: None Reported Past Drug Use History: None Reported - Past Family History Mother Family Medical History: No Reported History <TheresanicolasElliot Sandra - Last Filed: 05/13/23 20:21> General Exam Limitations: no limitations General appearance: alert, in distress Head exam: Present: atraumatic, normocephalic Eye exam: Present: normal appearance, PERRL ENT exam: Present: normal exam Neck exam: Present: normal inspection. Absent: tenderness, meningismus Respiratory exam: Present: normal lung sounds bilaterally. Absent: respiratory distress, wheezes Cardiovascular Exam: Present: regular rate, normal rhythm GI/Abdominal exam: Present: soft, distended, tenderness Extremities exam: Present: normal inspection, normal capillary refill Neurological exam: Present: alert, oriented X3, CN II-XII intact. Absent: motor sensory deficit Psychiatric exam: Present: normal affect, normal mood Skin exam: Present: warm, dry, intact <AmparoadityakathyElliot Sandra - Last Filed: 05/13/23 20:21> General appearance: alert, in no apparent distress, anxious, in distress Head exam: Present: atraumatic, normocephalic, normal inspection Eye exam: Present: normal appearance, PERRL, EOMI. Absent: scleral icterus, conjunctival injection, periorbital swelling ENT exam: Present: normal exam, mucous membranes moist Neck exam: Present: normal inspection. Absent: tenderness, meningismus, lymphadenopathy Respiratory exam: Present: normal lung sounds bilaterally. Absent: respiratory distress, wheezes, rales, rhonchi, stridor Cardiovascular Exam: Present: regular rate, normal rhythm, normal heart sounds. Absent: systolic murmur, diastolic murmur, rubs, gallop, clicks GI/Abdominal exam: Present: soft, normal bowel sounds. Absent: distended, tenderness, guarding, rebound, rigid Extremities exam: Present: normal inspection, full ROM, normal capillary refill. Absent: tenderness, pedal edema, joint swelling, calf tenderness Back exam: Present: normal inspection Neurological exam: Present: alert, oriented X3, CN II-XII intact Psychiatric exam: Present: normal affect, normal mood Skin exam: Present: warm, dry, intact, normal color. Absent: rash <Rafael Davis - Last Filed: 05/19/23 09:51> Course <Rafael Davis - Last Filed: 05/19/23 09:51> Vital Signs 05/11/23 05/11/23 05/11/23 13:21 14:00 15:00 Temperature 97.9 F Pulse Rate 82 78 82 Respiratory 20 16 18 Rate Blood Pressure 147/77 134/65 121/62 O2 Sat by Pulse 97 96 98 Oximetry 05/11/23 05/11/23 05/11/23 16:14 18:00 19:00 Temperature Pulse Rate 80 70 69 Respiratory 18 16 18 Rate Blood Pressure 119/58 120/59 127/52 O2 Sat by Pulse 96 96 95 Oximetry 05/11/23 20:12 Temperature 98.1 F Pulse Rate 77 Respiratory 18 Rate Blood Pressure 126/67 O2 Sat by Pulse 95 Oximetry - Reevaluation(s) Reevaluation #1: 05/11/23 16:44 Records reviewed (Rafael Davis) Reevaluation #2: 05/11/23 18:53 This pain is difficult to control (Rafael Davis) Reevaluation #3: 05/11/23 18:53 Patient informed results and questions answered (Rafael Davis) Reevaluation #4: 05/11/23 16:45 Was pt. sent in by a medical professional or institution (ABIGAIL White, EXECUTIVE MARKETING ASSISTANT, urgent care, hospital, or alf...) When possible be specific @ -no Did you speak to anyone other than the patient for history (EMS, parent, family, police, friend...)? What history was obtained from this source @ -no Did you review nursing and triage notes (agree or disagree)? Why? @ -agree Are old charts reviewed (outside hosp., previous admission, EMS record, old EKG, old radiological studies, urgent care reports/EKG's, alf records)? Report findings @ -yes Differential Diagnosis (chest pain, altered mental status, abdominal pain women, abdominal pain men, vaginal bleeding, weakness, fever, dyspnea, syncope, headache, dizziness, GI bleed, back pain, seizure, CVA, palpatations, mental health, musculoskeletal)? @ -prior EKG interpreted by me (3pts min.). @ -yes X-rays interpreted by me (1pt min.). @ -yes negative for acute disease CT interpreted by me (1pt min.). @ -yes positive for significant splenic infarct U/S interpreted by me (1pt. min.). @ -no What testing was considered but not performed or refused? (CT, X-rays, U/S, labs)? Why? @ -none What meds were considered but not given or refused? Why? @ -none Did you discuss the management of the patient with other professionals (rohini bowen i.e. ABIGAIL White, EXECUTIVE MARKETING ASSISTANT, lab, RT, psych nurse, social work case manager, log deckman, teacher, airfield services officer, skilled nursing case manager)? Give summary @ -no Was smoking cessation discussed for >3mins.? @ -no Were there social determinants of health that impacted care today? How? (Homelessness, low income, unemployed, alcoholism, drug addiction, transportation, low edu. Level, literacy, decrease access to med. care, shelter, rehab)? @ -none Was there de-escalation of care discussed even if they declined (Discuss DNR or withdrawal of care, Hospice)? DNR status @ -no What co-morbidities impacted this encounter? (DM, HTN, Smoking, COPD, CAD, Cancer, CVA, ARF, Chemo, Hep., AIDS, mental health diagnosis, sleep apnea, morbid obesity)? @ -none Was patient admitted / discharged? Hospital course, mention meds given and route, prescriptions, significant lab abnormalities, going to OR and other pertinent info. @ - 47 male to the ER for evaluation of severe pain severe flank pain left- sided flank pain patient does have significant flank pain here in the emergency department and patient's pain is well-controlled currently patient will be transferred to [facility] Transferred Admitted to [facility] Was critical care preformed (if so, how long)? @ -yes31 Undiagnosed new problem with uncertain prognosis? @ -no Drug Therapy requiring intensive monitoring for toxicity (Heparin, Nitro, Insu tegan, Cardizem)? @ -no Were any procedures done? @ -no Diagnosis/symptom? @ -Splenic infarct, significant medical comorbidities Acute, or Chronic, or Acute on Chronic? @ -Acute Uncomplicated (without systemic symptoms) or Complicated (systemic symptoms)? @ -Complicated Side effects of treatment? @ -no Exacerbation, Progression, or Severe Exacerbation? @ -exacerbation Poses a threat to life or bodily function? How? (Chest pain, [place], [place], pneumonia, PE, COPD, DKA, ARF, appy, cholecystitis, CVA, Diverticulitis, Homicidal, Suicidal, threat to staff... and all critical care pts) @ -yes with significant splenic infarct and comorbidities (Rafael Davis) Reevaluation #5: 05/11/23 16:45 Differential Chest Pain: Stable Angina, Unstable Angina, STEMI, NSTEMI Aortic Dissection, Pneumothorax, Musculoskeletal, Esophageal Spasm GERD, Cholecystitis, Pancreatitis, Zoster, this is not meant to be an all-inclusive list. Differential Abdominal Pain Men: Appendicitis, cholecystitis, diverticulosis, ischemic bowel, pancreatitis, hepatitis, UTI, gastroenteritis, AAA, incarcerated hernia, bowel obstruction, constipation, inflammatory bowel, hepatitis, peptic ulcer disease, splenic i nfarction, perforated viscus, testicular torsion, this is not meant to be an all-inclusive list (Rafael Davis) - Consultations Consultation #1: Spoke with patient's transplant team who will accept patient in transfer (Rafael Davis) EKG Findings - EKG Results: EKG: interpreted by ERMD <Rafael Davis - Last Filed: 05/19/23 09:51> Medical Decision Making - Lab Data Result diagrams: 05/11/23 13:59 05/11/23 13:59 <Elliot Black Sandra - Last Filed: 05/13/23 20:21> - Lab Data Result diagrams: 05/11/23 13:59 05/11/23 13:59 - EKG Data -: EKG Interpreted by Me (EKG is sinus 73 MN 176 QRS 100 QTc 423) - Radiology Data Radiology results: report reviewed (ABIGAIL chest abdomen pelvis does show significant splenomegaly with splenic infarct), image reviewed <Jaleel Davismundo Jnae - Last Filed: 05/19/23 09:51> - Medical Decision Making Was pt. sent in by a medical professional or institution (ABIGAIL White, EXECUTIVE MARKETING ASSISTANT, urgent care, hospital, or alf...) When possible be specific @ -[No] Did you speak to anyone other than the patient for history (EMS, parent, family, police, friend...)? What history was obtained from this source @ -[No] Did you review nursing and triage notes (agree or disagree)? Why? @ -[I reviewed and agree with nursing and triage notes] Were old charts reviewed (outside hosp., previous admission, EMS record, old EKG, old radiological studies, urgent care reports/EKG's, alf records)? Report findings @ -[No old charts were reviewed] Differential Diagnosis (chest pain, altered mental status, abdominal pain women, abdominal pain men, vaginal bleeding, weakness, fever, dyspnea, syncope, headache, dizziness, GI bleed, back pain, seizure, CVA, palpatations, mental health, musculoskeletal)? @ Differential Chest Pain: Stable Angina, Unstable Angina, STEMI, NSTEMI Aortic Dissection, Pneumothorax, Musculoskeletal, Esophageal Spasm GERD, Cholecystitis, Pancreatitis, Zoster, this is not meant to be an all-inclusive list. EKG interpreted by me (3pts min.). @ -[Sinus rhythm rate of 73, MN interval 176, QRS duration 100, QTC [address] segment elevation. X-rays interpreted by me (1pt min.). @ -[None done] CT interpreted by me (1pt min.). @ -[None done] U/S interpreted by me (1pt. min.). @ -[None done] What testing was considered but not performed or refused? (CT, X-rays, U/S, labs)? Why? @ -[None] What meds were considered but not given or refused? Why? @ -[None] Did you discuss the management of the patient with other professionals (eleuterio montero i.e. , PA, EXECUTIVE MARKETING ASSISTANT, lab, RT, psych nurse, social work case manager, log deckman, teacher, airfield services officer, skilled nursing case manager)? Give summary @ -[No] Was smoking cessation discussed for >3mins.? @ -[No] Was critical care preformed (if so, how long)? @ -[No] Were there social determinants of health that impacted care today? How? (Homelessness, low income, unemployed, alcoholism, drug addiction, transp ortation, low edu. Level, literacy, decrease access to med. care, shelter, rehab)? @ -[No] Was there de-escalation of care discussed even if they declined (Discuss DNR or withdrawal of care, Hospice)? DNR status @ -[No] What co-morbidities impacted this encounter? (DM, HTN, Smoking, COPD, CAD, Cancer, CVA, ARF, Chemo, Hep., AIDS, mental health diagnosis, sleep apnea, morbid obesity)? @ -[None] Was patient admitted / discharged? Hospital course, mention meds given and route, prescriptions, significant lab abnormalities, going to OR and other pertinent info. Patient care signed out at shift change to Dr. Davis, awaiting CT angiography and CT abdomen pelvis with contrast results. (Elliot Black) 47 male to the ER for evaluation of severe pain severe flank pain left-sided flank pain patient does have significant flank pain here in the emergency department and patient's pain is well-controlled currently patient will be transferred to [facility] (Rafael Davis) - Lab Data Lab Results 05/11/23 05/11/23 05/11/23 Range/Units 13:59 13:59 13:59 WBC 7.7 (3.8-10.6) k/uL RBC 4.94 (4.30-5.90) m/uL Hgb 15.7 (13.0-17.5) gm/dL Hct 45.5 (39.0-53.0) % MCV 92.1 (80.0-100.0) fL MCH 31.7 (25.0-35.0) pg MCHC 34.5 (31.0-37.0) g/dL RDW 14.8 (11.5-15.5) % Plt Count 387 (150-450) k/uL MPV 7.6 Neutrophils % 71 % Lymphocytes % 17 % Monocytes % 8 % Eosinophils % 3 % Basophils % 1 % Neutrophils # 5.4 (1.3-7.7) k/uL Lymphocytes # 1.3 (1.0-4.8) k/uL Monocytes # 0.6 (0-1.0) k/uL Eosinophils # 0.2 (0-0.7) k/uL Basophils # 0.1 (0-0.2) k/uL PT 12.9 H (10.0-12.5) sec INR 1.2 H (<1.2) APTT 35.7 H (22.0-30.0) sec D-Dimer 0.76 H (<0.60) mg/L FEU Sodium 139 (137-145) mmol/L Potassium 4.2 (3.5-5.1) mmol/L Chloride 110 H (98-107) mmol/L Carbon Dioxide 23 (22-30) mmol/L Anion Gap 6 mmol/L BUN 15 (9-20) mg/dL Creatinine 0.80 (0.66-1.25) mg/dL Est GFR (CKD-EPI)AfAm >90 (>60 ml/min/1.73 sqM) Est GFR (CKD-EPI)NonAf >90 (>60 ml/min/1.73 sqM) Glucose 99 (74-99) mg/dL Calcium 8.4 (8.4-10.2) mg/dL Magnesium 2.1 (1.6-2.3) mg/dL Total Bilirubin 2.8 H (0.2-1.3) mg/dL AST 62 H (17-59) U/L ALT 37 (4-49) U/L Alkaline Phosphatase 149 H (38-126) U/L Troponin I (0.000-0.034) ng/mL Total Protein 6.8 (6.3-8.2) g/dL Albumin 3.2 L (3.5-5.0) g/dL Lipase 237 (23-300) U/L 05/11/23 Range/Units 13:59 WBC (3.8-10.6) k/uL RBC (4.30-5.90) m/uL Hgb (13.0-17.5) gm/dL Hct (39.0-53.0) % MCV (80.0-100.0) fL MCH (25.0-35.0) pg MCHC (31.0-37.0) g/dL RDW (11.5-15.5) % Plt Count (150-450) k/uL MPV Neutrophils % % Lymphocytes % % Monocytes % % Eosinophils % % Basophils % % Neutrophils # (1.3-7.7) k/uL Lymphocytes # (1.0-4.8) k/uL Monocytes # (0-1.0) k/uL Eosinophils # (0-0.7) k/uL Basophils # (0-0.2) k/uL PT (10.0-12.5) sec INR (<1.2) APTT (22.0-30.0) sec D-Dimer (<0.60) mg/L FEU Sodium (137-145) mmol/L Potassium (3.5-5.1) mmol/L Chloride (98-107) mmol/L Carbon Dioxide (22-30) mmol/L Anion Gap mmol/L BUN (9-20) mg/dL Creatinine (0.66-1.25) mg/dL Est GFR (CKD-EPI)AfAm (>60 ml/min/1.73 sqM) Est GFR (CKD-EPI)NonAf (>60 ml/min/1.73 sqM) Glucose (74-99) mg/dL Calcium (8.4-10.2) mg/dL Magnesium (1.6-2.3) mg/dL Total Bilirubin (0.2-1.3) mg/dL AST (17-59) U/L ALT (4-49) U/L Alkaline Phosphatase (38-126) U/L Troponin I <0.012 (0.000-0.034) ng/mL Total Protein (6.3-8.2) g/dL Albumin (3.5-5.0) g/dL Lipase (23-300) U/L Critical Care Time Critical Care Time: Yes Total Critical Care Time: 31 <Rafael Davis - Last Filed: 05/19/23 09:51> Disposition Is patient prescribed a controlled substance at d/c from ED?: No - Out of Hospital Transfer - Req. Specs Out of Hospital Transfer - Requested Specifics: Other Emergency Center ([facility]) <Elliot Black - Last Filed: 05/13/23 20:21> Is patient prescribed a controlled substance at d/c from ED?: No Time of Disposition: 18:50 <Rafael Davis - Last Filed: 05/19/23 09:51> Clinical Impression: Abdominal pain, Splenic infarct Disposition: OTHER INSTITUTION NOT DEFINED Condition: Serious Referrals: Salvatore Vásquez MD [Primary Care Provider] - 1-2 days
[2023-05-11 14:21] LABS: Basophils # (A) 0.1 k/uL (0-0.2); Basophils % (A) 1 %; Eosinophils # (A) 0.2 k/uL (0-0.7); Eosinophils % (A) 3 %; HCT 45.5 % (39.0-53.0); HGB 15.7 gm/dL (13.0-17.5); Lymphocytes # (A) 1.3 k/uL (1.0-4.8); Lymphocytes % (A) 17 %; MCH 31.7 pg (25.0-35.0); MCHC 34.5 g/dL (31.0-37.0); MCV 92.1 fL (80.0-100.0); Mean Platelet Volume 7.6; Monocytes # (A) 0.6 k/uL (0-1.0); Monocytes % (A) 8 %; Neutrophils # (A) 5.4 k/uL (1.3-7.7); Neutrophils % (A) 71 %; Platelet Count 387 k/uL (150-450); RBC 4.94 m/uL (4.30-5.90); RDW 14.8 % (11.5-15.5); WBC 7.7 k/uL (3.8-10.6)
[2023-05-11 14:27] LABS: ALT 37 U/L (4-49); AST 62 U/L (17-59); African American GFR (CKD) >90 (>60 ml/min/1.73 sqM); Albumin 3.2 g/dL (3.5-5.0); Alkaline Phosphatase 149 U/L (38-126); Anion Gap 6 mmol/L; Blood Urea Nitrogen 15 mg/dL (9-20); Calcium 8.4 mg/dL (8.4-10.2); Carbon Dioxide 23 mmol/L (22-30); Chloride 110 mmol/L (98-107); Glucose 99 mg/dL (74-99); Lipase 237 U/L (23-300); Magnesium 2.1 mg/dL (1.6-2.3); Non-African American GFR(CKD) >90 (>60 ml/min/1.73 sqM); Potassium 4.2 mmol/L (3.5-5.1); Sodium 139 mmol/L (137-145); Total Bilirubin 2.8 mg/dL (0.2-1.3); Total Protein 6.8 g/dL (6.3-8.2)
--- NOTE | 2023-05-11 14:27 | XR ---
EXAMINATION TYPE: XR chest 2V DATE OF EXAM: 05/11/2023 2:16 PM CLINICAL INDICATION:Male, 47 years old with history of Chest Pain; [facility] COMPARISON: None TECHNIQUE: XR chest 2V. Frontal and lateral views of the chest.. FINDINGS: EKG leads over the chest. No indwelling lines are seen. Heart appears mildly enlarged. Mildly tortuous aorta. Trachea appears patent. Mild coarsening of interstitial lung markings, likely chronic. No focal airspace consolidation, pleur al effusion, or pneumothorax. On the lateral view a nodular density projects along the posterior aspe ct of the heart. Mild diffuse degenerative changes. No acute bony abnormality in the limits of the exam. IMPRESSION: 1. No acute cardiopulmonary abnormality. 2. Nodular density seen on the lateral view, of uncertain etiology. Recommend nonemergent outpatient CT chest in the near future for further evaluation.
[2023-05-11 14:35] LABS: INR 1.2 (<1.2); Partial Thromboplastin Time 35.7 sec (22.0-30.0); Prothrombin Time 12.9 sec (10.0-12.5)
[2023-05-11 15:22] VITALS: RESP 18
--- NOTE | 2023-05-11 16:21 | CT ---
EXAMINATION TYPE: CT abdomen pelvis w con CT DLP: 3014.3 mGycm, Automated exposure control for dose reduction was used. DATE OF EXAM: 05/11/2023 3:19 PM COMPARISON: CT abdomen pelvis without contrast 07/22/2018 CLINICAL INDICATION:Male, 47 years old with history of LUQ pain; LUQ pain TECHNIQUE: Axial CT of the abdomen and pelvis. Sagittal and coronal reformats were created on a [employer] workstation. Contrast used:100 mL of Isovue 370 with IV Contrast, (none if empty) Oral contrast used: without Oral Contrast (none if empty) FINDINGS: LOWER CHEST: Mild bibasilar scarring and/or subsegmental atelectasis. ABDOMEN LIVER: Vaguely hypoattenuating 4 cm lesion in the posterior right hepatic lobe with deformity/bulging of the hepatic capsular surface above the right kidney, this lesion appears to the filling in slight ly peripherally with contrast on delayed imaging however there is no definite focal puddling of contr ast. This lesion is not well seen on prior unenhanced study but was likely present as there was hepat ic contour deformity at that time in this location. A small irregular hypoattenuating 1.7 cm focus al so in the right lobe image 23, nonspecific. GALLBLADDER AND BILE DUCTS: Unremarkable gallbladder. No biliary ductal dilatation. PANCREAS: Unremarkable. SPLEEN: Unremarkable. ADRENAL GLANDS: Splenomegaly again noted, spleen is about 19.7 cm. Patchy hypoenhancing area is seen in the periphery of the spleen posterolaterally measuring approximately 7.6 x 3.8 cm axially and 5.4 cm craniocaudally; somewhat wedge-shaped. Numerous other subcentimeter hypoattenuating foci are also seen scattered throughout the spleen. KIDNEYS AND URETERS: Small clustered calculi in the right mid to lower kidney with the largest 7.8 mm . Calculus in the mid left kidney measures 3.4 mm. There are multiple small hypoattenuating nodules t hroughout both kidneys which are not fully characterized but have the appearance of cysts. Kidneys co ncentrate and excrete contrast symmetrically. Collecting systems/ureters appear unremarkable. PELVIS BLADDER: Unremarkable REPRODUCTIVE: Nonenlarged prostate with a couple of small parenchymal calcifications. ABDOMEN & PELVIS STOMACH AND BOWEL: Stomach is mildly distended with heterogeneous material. Clustered radiodense foci in the distal stomach likely ingested medication. Nondilated small bowel loops, no evidence of obstr uction. Appendix is gas-filled and appears within normal limits. There is mild/moderate stool through out the colon with no acute abnormality identified. PERITONEUM/RETROPERITONEUM: No evidence of pneumoperitoneum or free fluid. VASCULATURE: Aorta and major branches are grossly unremarkable. No AAA. Portal vein appears to be p atent. Splenic vein appears engorged. There are numerous enhancing serpentine structures consistent w ith varices seen in the left upper abdomen, including the splenic hilum, gastrohepatic ligament regio n; these were present on the 2019 study but not well seen without contrast. LYMPH NODES: No gross evidence for lymphadenopathy. SOFT TISSUE/ABDOMINAL WALL: Multiple wispy subcutaneous foci of increased attenuation likely from med ication injections. Mild body wall edema. Partially seen is suspected gynecomastia. Small fat-contain ing umbilical region hernia. MUSCULOSKELETAL: No acute osseous abnormalities. Mild disc degeneration changes are present throughou t the thoracolumbar spine. Mild/moderate hip arthropathy. IMPRESSION: * Splenomegaly redemonstrated. * Peripheral hypoenhancing region in the spleen measuring up to about 7.6 cm, likely represents sple jennifer infarct. There are also multiple additional small rounded foci of hypoenhancement throughout the spleen. Differential considerations would include multiple infarcts, splenic abscess, less likely lym phoma, metastasis, other infiltrative processes. * Engorged splenic vein and numerous prominent venous collaterals in the left upper abdomen. * A couple of hypoenhancing hepatic lesions, nonspecific. The larger is suspected to be an hemangiom a. The smaller may also be an hemangioma or other lesion. Further characterization with nonemergent h epatic MRI and/or follow-up may be considered. * Bilateral nonobstructing nephrolithiasis. * Numerous small hypoattenuating bilateral renal nodules, not fully characterized but may be cysts.
--- NOTE | 2023-05-11 16:37 | CT ---
EXAMINATION TYPE: CT angio chest CT DLP: 3014.3 mGycm, Automated exposure control for dose reduction was used. DATE OF EXAM: 05/11/2023 3:19 PM COMPARISON: Same day chest x-ray CLINICAL INDICATION:Male, 47 years old with history of CP/pos dimer; SOB TECHNIQUE/CONTRAST: CTA scan of the thorax is performed with IV Contrast, patient injected with 100 mL of Isovue 370, MIP images are created and reviewed these are created on a separate workstation.. FINDINGS: There is adequate contrast bolus. Pulmonary arteries are suboptimally seen due to dense contrast in t he SVC with adjacent beam hardening artifact partially obscuring surrounding structures. PULMONARY ARTERIES: There is no evidence for a central filling defect within the pulmonary vasculatur e to suggest acute central or saddle pulmonary embolism. Limited evaluation of the segmental and subs egmental branches. I do not identify a clear-cut embolus however. Pulmonary trunk is normal in size. Trunk measures 2.4 CM. HEART: Normal heart size. No significant coronary calcifications seen. No appreciable pericardial ef fusion. AORTA: No significant atherosclerosis seen.. Ascending aorta is approximately 3 CM, descending is 2. 3 CM. Aorta is considered within normal limits. LOWER NECK: No significant findings. MEDIASTINUM: No gross evidence of adenopathy. SOFT TISSUES/LYMPH NODES: Moderate bilateral gynecomastia changes. Mild body wall edema. No axillary adenopathy. LUNGS/ PLEURA: Dependent subsegmental changes in the posterior lungs suggestive of atelectasis. Addit ional largely similar but asymmetric opacities in the left lower lobe could be due to additional atel ectasis versus early infiltrate. There is no dense consolidation or air bronchograms seen. No sizable nodule or mass. No pleural effusion or pneumothorax. AIRWAY: Central airways are patent. MUSCULOSKELETAL: No acute osseous abnormality. Mild degenerative changes. UPPER ABDOMEN: Please see CT abdomen report for findings. IMPRESSION: 1. Limited study, no evidence of central pulmonary embolism. Limited evaluation of the segmental and subsegmental branches. 2. Mild subsegmental atelectasis in the posterior lungs bilaterally. Additional asymmetric opacities in the left lower lobe, could be due to atelectasis versus developing infiltrate.
[2023-05-11 20:18] VITALS: BP 126/67; PULSE 77; TEMP 98.1
== END 2023-05-11 20:40 | disposition other institution (70) ==
LOC: EC 13:19
DX: D73.5 Infarction of spleen (principal); Z87.891 Personal history of nicotine dependence; Z88.1 Allergy status to other antibiotic agents
CPT/HCPCS: 36415; 93005; 85379; 80053; 83690; 83735; 84484; 85025; 85610; 85730; 71046; 71275; 74177; 99291; 96374; 96376 ×2; J1170; Q9967

== ENCOUNTER 2023-11-12 09:38 | Day surgery (SDC) | payer BC ==
[2023-11-10 09:25] VITALS: BMI 28.8
[~2023-11-12 09:38] MED LIST changes: -ACETAMINOPHEN TAB 500 MG TAB PO PRN; -DEXAMETHASONE SOD PHOSPHATE 4 MG/ML 1 ML VIAL IV ONE; -HEPARIN SODIUM,PORCINE/PF 5,000 UNIT/0.5 ML SYRINGE SQ PRN; -LIDOCAINE 1% (10MG/ML) FOR IV START INTRADERMA PRN; -ONDANSETRON 4 MG/2 ML VIAL IVP ONE; -Pre Op ABX Message 1 EACH MISC MISCELLANE ONE
[2023-11-12] MEDS: IV FLUID CONTINUATION 1,000 ML IV ONE (10:19)
[2023-11-12 10:30] VITALS: TEMP 98
[2023-11-12] MEDS ORDERED: PROPOFOL 10 MG/ML 20 ML VIAL IV ONE (10:48)
--- NOTE | 2023-11-12 11:02 | P.PCN ---
Date of Procedure: 11/12/23 Procedure(s) Performed: BRIEF HISTORY: Patient is a 48-year-old pleasant White/male scheduled for an elective colonoscopy as a part of screening for colon cancer. He does have history of longstanding history of ulcerative colitis diagnosed in 2003. PROCEDURE PERFORMED: Colonoscopy with random biopsies. PREOPERATIVE DIAGNOSIS: Screening for colon cancer/longstanding history of ulcerative colitis. IV sedation per Anesthesia. PROCEDURE: After informed consent was obtained, the patient, was brought into the endoscopy unit. IV sedation was administered by Anesthesia under continuous monitoring. Digital rectal examination was normal. Initially the Olympus CF-160 flexible video colonoscope was then inserted in the rectum, gradually advanced into the cecum without any difficulty. Careful examination was performed as the scope was gradually being withdrawn. Ileocecal valve and the appendiceal orifice were visualized and appeared normal. Prep was excellent. Mucosa of the cecum, ascending colon, transverse colon, descending colon, sigmoid colon, and rectum appeared normal. Random biopsies were done from cecum to rectum at every 10 cm intervals. Retroflexion was performed in the rectum and no lesions were seen. The patient tolerated the procedure well. IMPRESSION: Normal-appearing colon from rectum to cecum with no evidence of active colitis or colorectal neoplasia. RECOMMENDATIONS: Findings of this examination were discussed with the patient as well as his family. He was advised to follow-up the biopsy results and have repeat colonoscopy every year..
[2023-11-12 11:13] VITALS: RESP 16
[2023-11-12 11:29] VITALS: BP 127/74; PULSE 70
== END 2023-11-12 11:40 | disposition home or self-care (01) ==
LOC: ORWHC2ENDO 09:38
PROVIDERS: ATTEND Internal Medicine Gastroenterology
DX: K63.5 Polyp of colon (principal); K74.60 Unspecified cirrhosis of liver; Z87.891 Personal history of nicotine dependence; Z79.899 Other long term (current) drug therapy; Z88.1 Allergy status to other antibiotic agents
CPT/HCPCS: 88305; 45380; J2704

== ENCOUNTER 2024-03-08 18:06 | Emergency (ER) | payer BC ==
[2024-03-08 18:20] VITALS: TEMP 97.9
--- NOTE | 2024-03-08 18:20 | ED ---
Abdominal Pain HPI - General Source: patient, family, RN notes reviewed <Gaye Billings - Last Filed: 03/08/24 18:19> - General Source: patient, family, RN notes reviewed Limitations: no limitations <Aryan Edwards - Last Filed: 03/08/24 20:52> - General Stated Complaint: lt side pain, post fall Time Seen by Provider: 03/08/24 18:19 - History of Present Illness Initial Comments: Quick [id number] male with history of stage III liver disease and splenomegaly presenting to the emergency department for chief complaint of left- sided abdominal pain that occurred over the weekend. Patient is on Friday he had an accident while he was hunting and post pain to the left side of his abdomen. Patient was advised by computerized mill mill recorder to report to emergency department for further evaluation. Patient follows with specialist at [facility]. (Gaye Billings) Patient is a 48-year-old male present to the emergency department with concern for left side pain. 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 Patient was hunting 2 days ago and tripped and fell over a large branch. Patient landed on his left side. Patient is having discomfort still. Discomfort is 7/10. No dyspnea however discomfort does increase with deep breaths. No head injury or loss of consciousness. No neck or mid back pain (Aryan Edwards) - Related Data Home Medications Medication Instructions Recorded Confirmed Ursodiol 300 mg PO BID 10/01/13 11/10/23 Calcium Citrate/Vitamin D3 1 tab PO DAILY 10/29/18 11/10/23 [Calcitrate + Vit D Caplet] Furosemide [Lasix] 40 mg PO DAILY 01/28/22 11/10/23 Ascorbic Acid [Vitamin C] 2,000 mg PO DAILY 06/04/22 11/10/23 Mesalamine [Lialda] 2.4 gm PO DAILY 06/04/22 11/10/23 Eplerenone [Inspra] 50 mg PO DAILY 05/11/23 11/10/23 Lactulose [Constulose] 10 gm PO DAILY 05/11/23 11/10/23 Allergies Allergy/AdvReac Type Severity Reaction Status Date / Time metronidazole [From Flagyl] Allergy Rash/Hives Verified 03/08/24 18:20 Review of Systems ROS Other: All systems not noted in ROS Statement are negative. <ManuelitoGaye - Last Filed: 03/08/24 18:19> ROS Other: All systems not noted in ROS Statement are negative. Constitutional: Denies: fever Eyes: Denies: eye pain ENT: Denies: ear pain Respiratory: Reports: as per HPI. Denies: cough, dyspnea Gastrointestinal: Reports: as per HPI, abdominal pain <Aryan Edwards - Last Filed: 03/08/24 20:52> ROS Statement: Those systems with pertinent positive or pertinent negative responses have been documented in the HPI. Past Medical History Past Medical History: Blood Disorder, Liver Disease Additional Past Medical History / Comment(s): PRIMARY SCLEROSING CHOANGITIS, CIRRHOSIS. ITP. ULCERATIVE COLITIS. enlarge spleen, History of Any Multi-Drug Resistant Organisms: None Reported, MRSA Date of last positivie culture/infection: 02/05/22 MDRO Source:: Neck Additional Past Surgical History / Comment(s): dilip eye -LASIK surgery. RECTAL ABSCESS, lipoma removed from mult areas, colonoscopy Past Anesthesia/Blood Transfusion Reactions: No Reported Reaction Additional Past Anesthesia/Blood Transfusion Reaction / Comment(s): no hx blood transfusion Smoking Status: Former smoker - Past Family History Mother Family Medical History: No Reported History <XiomarapayalSamuelGaye - Last Filed: 03/08/24 18:19> General Exam <Gaye Billings - Last Filed: 03/08/24 18:19> Limitations: no limitations General appearance: alert, in no apparent distress Head exam: Present: normocephalic Eye exam: Present: normal appearance Neck exam: Present: normal inspection. Absent: tenderness Respiratory exam: Present: normal lung sounds bilaterally, chest wall tenderness (Lower ribs on the left side) Cardiovascular Exam: Present: regular rate, normal rhythm, normal heart sounds GI/Abdominal exam: Present: soft, tenderness (Moderate tenderness left upper abdomen), normal bowel sounds. Absent: distended, guarding, rebound, rigid, pulsatile mass Extremities exam: Present: normal inspection, full ROM. Absent: tenderness Back exam: Present: normal inspection. Absent: tenderness Neurological exam: Present: alert Psychiatric exam: Present: normal affect, normal mood Skin exam: Present: normal color <Aryan Edwards - Last Filed: 03/08/24 20:52> - General Exam Comments Initial Comments: Visual Physical Exam Vital signs reviewed General: Well-appearing, nontoxic, no acute distress. Head: Normocephalic, atraumatic Eyes: PERRLA, EOMI ENT: Airway patent Chest: Nonlabored breathing Skin: No visual rash, normal skin tone Neuro: Alert and oriented 3 Musculoskeletal: No gross abnormalities (Gaye Billings) Course Vital Signs 03/08/24 03/08/24 03/08/24 18:17 19:44 20:00 Temperature 97.9 F Pulse Rate 63 54 L 55 L Respiratory 16 18 18 Rate Blood Pressure 151/80 137/79 138/78 O2 Sat by Pulse 99 97 98 Oximetry Medical Decision Making <Gaye Billings - Last Filed: 03/08/24 18:19> - Lab Data Result diagrams: 03/08/24 18:33 03/08/24 18:33 <Aryan Edwards - Last Filed: 03/08/24 20:52> - Medical Decision Making I completed the quick note portion of this chart signed Gaye Billings PA-C (Gaye Billings) Was pt. sent in by a medical professional or institution ([facility], [facility], urgent care, hospital, or [facility]...) When possible be specific @ -No Did you speak to anyone other than the patient for history (EMS, parent, family, police, friend...)? What history was obtained from this source @ -Family's present and help provide history including past medical history Did you review nursing and triage notes (agree or disagree)? Why? @ -I reviewed and agree with nursing and triage notes Were old charts reviewed (outside hosp., previous admission, EMS record, old EKG, old radiological studies, urgent care reports/EKG's, [facility] records)? Report findings @ -No old charts were reviewed Differential Diagnosis (chest pain, altered mental status, abdominal pain women, abdominal pain men, vaginal bleeding, weakness, fever, dyspnea, syncope, headache, dizziness, GI bleed, back pain, seizure, CVA, palpatations, mental health, musculoskeletal)? @ -Differential Abdominal Pain Men: Appendicitis, cholecystitis, diverticulosis, ischemic bowel, pancreatitis, hepatitis, UTI, gastroenteritis, AAA, incarcerated hernia, bowel obstruction, constipation, inflammatory bowel, hepatitis, peptic ulcer disease, splenic infarction, perforated viscus, testicular torsion, this is not meant to be an all-inclusive list EKG interpreted by me (3pts min.). @ -As above X-rays interpreted by me (1pt min.). @ -None done CT interpreted by me (1pt min.). @ -Scan abdomen pelvis and chest shows tentative trauma. Hepatosplenomegaly. No hemoperitoneum. Cirrhotic liver. U/S interpreted by me (1pt. min.). @ -None done What testing was considered but not performed or refused? (CT, X-rays, U/S, labs)? Why? @ -None What meds were considered but not given or refused? Why? @ -None Did you discuss the management of the patient with other professionals (professionals i.e. , PA, [employer], lab, RT, psych nurse, sexual assault social worker, pack train driver, teacher, compliance officer, caser)? Give summary @ -No Was smoking cessation discussed for >3mins.? @ -No Was critical care preformed (if so, how long)? @ -No Were there social determinants of health that impacted care today? How? (Homelessness, low income, unemployed, alcoholism, drug addiction, trans portation, low edu. Level, literacy, decrease access to med. care, [facility], rehab)? @ -No Was there de-escalation of care discussed even if they declined (Discuss DNR or withdrawal of care, Hospice)? DNR status @ -No What co-morbidities impacted this encounter? (DM, HTN, Smoking, COPD, CAD, Cancer, CVA, ARF, Chemo, Hep., AIDS, mental health diagnosis, sleep apnea, morbid obesity)? @ -History of hepatosplenomegaly and liver disease limiting evaluation and CT. However injury was 2 days ago and there is no definitive injury. If there was any small subtle injury it would just be observed at this time. Was patient admitted / discharged? Hospital course, mention meds given and route, prescriptions, significant lab abnormalities, going to OR and other pertinent info. @ -Patient presents with fall with left upper flank discomfort. No definitive trauma on imaging. Patient will be discharged and recommended follow-up with his doctor Undiagnosed new problem with uncertain prognosis? @ -No Drug Therapy requiring intensive monitoring for toxicity (Heparin, Nitro, Insulin, Cardizem)? @ -No Were any procedures done? @ -No Diagnosis/symptom? @ -Left flank contusion Acute, or Chronic, or Acute on Chronic? @ -Acute Uncomplicated (without systemic symptoms) or Complicated (systemic symptoms)? @ -Default Side effects of treatment? @ -No Exacerbation, Progression, or Severe Exacerbation? @ -No Poses a threat to life or bodily function? How? (Chest pain, USA, NM, pneumonia, PE, COPD, DKA, ARF, appy, cholecystitis, CVA, Diverticulitis, Homicidal, Suicidal, threat to staff... and all critical care pts) @ -No (Aryan Edwards) - Lab Data Lab Results 03/08/24 03/08/24 03/08/24 Range/Units 18:33 18:33 18:33 WBC 6.7 (3.8-10.6) k/uL RBC 4.13 L (4.30-5.90) m/uL Hgb 13.5 (13.0-17.5) gm/dL Hct 40.0 (39.0-53.0) % MCV 96.8 (80.0-100.0) fL MCH 32.7 (25.0-35.0) pg MCHC 33.8 (31.0-37.0) g/dL RDW 14.9 (11.5-15.5) % Plt Count 518 H (150-450) k/uL MPV 7.3 Neutrophils % 67 % Lymphocytes % 19 % Monocytes % 7 % Eosinophils % 4 % Basophils % 1 % Neutrophils # 4.5 (1.3-7.7) k/uL Lymphocytes # 1.3 (1.0-4.8) k/uL Monocytes # 0.5 (0-1.0) k/uL Eosinophils # 0.3 (0-0.7) k/uL Basophils # 0.1 (0-0.2) k/uL PT 12.4 (10.0-12.5) sec INR 1.2 H (<1.2) APTT 36.3 H (22.0-30.0) sec Sodium 136 L (137-145) mmol/L Potassium 3.8 (3.5-5.1) mmol/L Chloride 108 H (98-107) mmol/L Carbon Dioxide 22 (22-30) mmol/L Anion Gap 6 mmol/L BUN 13 (9-20) mg/dL Creatinine 0.94 (0.66-1.25) mg/dL Est GFR (CKD-EPI)AfAm >90 (>60 ml/min/1.73 sqM) Est GFR (CKD-EPI)NonAf >90 (>60 ml/min/1.73 sqM) Glucose 119 H (74-99) mg/dL Calcium 8.5 (8.4-10.2) mg/dL Total Bilirubin 3.1 H (0.2-1.3) mg/dL AST 118 H (17-59) U/L ALT 58 H (4-49) U/L Alkaline Phosphatase 321 H (38-126) U/L Total Protein 7.0 (6.3-8.2) g/dL Albumin 3.2 L (3.5-5.0) g/dL Disposition <Gaye Billings - Last Filed: 03/08/24 18:19> Is patient prescribed a controlled substance at d/c from ED?: No Time of Disposition: 20:52 <Aryan Edwards - Last Filed: 03/08/24 20:52> Clinical Impression: Contusion of flank Disposition: HOME SELF-CARE Condition: Stable Instructions (If sedation given, give patient instructions): Blunt Chest Trauma (ED), Blunt Abdominal Injury (ED), Contusion in Adults (ED) Additional Instructions: Please do follow-up with your primary care physician in the next 1 to 2 days for recheck. Please also follow-up with your liver specialist. Bring CD of your scan today for further discussion and possible further imaging if needed. Return for difficulty in breathing, increased pain, weakness, worsening or changing symptoms or any other concerns Referrals: Saul Mak MD [Primary Care Provider] - 1-2 days
[2024-03-08] MEDS: HYDROmorphone 1 MG/ML 1 ML SYRINGE IVP STA (18:40)
[2024-03-08 19:02] LABS: Basophils # (A) 0.1 k/uL (0-0.2); Basophils % (A) 1 %; Eosinophils # (A) 0.3 k/uL (0-0.7); Eosinophils % (A) 4 %; HGB 13.5 gm/dL (13.0-17.5); Lymphocytes # (A) 1.3 k/uL (1.0-4.8); Lymphocytes % (A) 19 %; MCH 32.7 pg (25.0-35.0); MCHC 33.8 g/dL (31.0-37.0); MCV 96.8 fL (80.0-100.0); Mean Platelet Volume 7.3; Monocytes # (A) 0.5 k/uL (0-1.0); Monocytes % (A) 7 %; Neutrophils # (A) 4.5 k/uL (1.3-7.7); Neutrophils % (A) 67 %; Platelet Count 518 k/uL (150-450); RBC 4.13 m/uL (4.30-5.90); RDW 14.9 % (11.5-15.5); WBC 6.7 k/uL (3.8-10.6)
[2024-03-08 19:04] LABS: INR 1.2 (<1.2); Partial Thromboplastin Time 36.3 sec (22.0-30.0); Prothrombin Time 12.4 sec (10.0-12.5)
[2024-03-08 19:40] LABS: ALT 58 U/L (4-49); AST 118 U/L (17-59); African American GFR (CKD) >90 (>60 ml/min/1.73 sqM); Albumin 3.2 g/dL (3.5-5.0); Alkaline Phosphatase 321 U/L (38-126); Anion Gap 6 mmol/L; Blood Urea Nitrogen 13 mg/dL (9-20); Calcium 8.5 mg/dL (8.4-10.2); Carbon Dioxide 22 mmol/L (22-30); Chloride 108 mmol/L (98-107); Glucose 119 mg/dL (74-99); Non-African American GFR(CKD) >90 (>60 ml/min/1.73 sqM); Potassium 3.8 mmol/L (3.5-5.1); Sodium 136 mmol/L (137-145); Total Bilirubin 3.1 mg/dL (0.2-1.3)
[2024-03-08 19:45] VITALS: RESP 18
--- NOTE | 2024-03-08 20:38 | CT ---
EXAMINATION TYPE: CT ChestAbdPelvis w con DATE OF EXAM: 03/08/2024 8:03 PM COMPARISON: Prior CT studies, most recently dated 05/11/2043. CLINICAL INDICATION: Male, 48 years old with history of L mid trauma; PHH, Pain in left upper/mid abd omen. Tripped and fell in the [place] this weekend while hunting, hx of stage 3 cirrhosis and splenomeg jose - concern for spleen injury from the fall. Technique: CT ChestAbdPelvis w con; Multiple axial images were obtained. Two-dimensional coronal and sagittal reconstructions were obtained. Contrast used:100ml mL of Isovue 300 with IV Contrast, (None if empty) Oral contrast used: without Oral Contrast CT DLP: 1330.3 mGycm, Automated exposure control for dose reduction was used. Findings: CHEST: Heart size within normal limits. No pericardial effusion. Thoracic aorta without evidence of focal an eurysm or dissection. No evidence of acute aortic injury. No chest wall or mediastinal hematoma. No p athologic mediastinal or hilar lymphadenopathy. Neurologic axillary lymphadenopathy. Bilateral gyneco mastia changes noted. Imaging through the lungs demonstrates no acute focal consolidation. No pleural effusion or pneumotho rax. No definite new suspicious or enlarging pulmonary nodule or pulmonary mass. Stable scattered sub centimeter pulmonary nodules. Example, a 4 mm subpleural nodule in the left lower lobe (axial image 3 8). No acute displaced rib fracture. Thoracic spine vertebral body heights appear maintained. Sternum is intact. ABDOMEN: Cirrhotic liver morphology. Indeterminate hypodense peripherally enhancing lesion in the right hepati c lobe measures 5.3 x 5.6 cm, similar to previous study dated 05/11/2023. Portal vein not well visuali zed, likely chronically occluded. This lesion is incompletely evaluated on single phase study. Disten ded gallbladder without CT evidence of acute cholecystitis. Innumerable superior abdominal varices. S plenomegaly. Hypoattenuating regions again visualized throughout the spleen, previously described as infarctions. Numerous additional subcentimeter hypoattenuating lesions also noted which are nonspecif ic. No large subcapsular splenic hematoma. No definite evidence of hemoperitoneum. Pancreas unremarka ble. No suspicious adrenal gland nodule. Kidneys enhance symmetrically bilaterally. No hydronephrosis of either ureter. Nonspecific bilateral renal calculi. Abdominal aorta normal in caliber. Celiac artery and SMA appear patent. Imaging through the gastrointestinal tract and states no evidence of bowel obstruction. Colonic diver ticulosis without acute diverticulitis. No significant free air or free fluid in the abdomen/pelvis. No acute fracture or dislocation. IMPRESSION: 1. No convincing evidence of an acute traumatic abnormality in the chest/abdomen/pelvis. 2. Large hypoenhancing region in the spleen, previously described as a splenic infarction, slightly more pronounced on prior study. No large subcapsular hematoma. Superimposed low grade splenic injury would be difficult to entirely exclude. No evidence of hemoperitoneum. 3. Cirrhotic liver morphology and findings suggest portal hypertension as above. Indeterminant 5.4 x 5.5 cm hypoechoic enhancing lesion in the right hepatic lobe. 4. MRI liver protocol with IV contrast for further evaluation if not already performed. [facility], , 03/08/2024 8:36 PM
[2024-03-08 21:11] VITALS: BP 125/61; PULSE 52
== END 2024-03-08 21:14 | disposition home or self-care (01) ==
LOC: EC 18:06
DX: S30.1XXA Contusion of abdominal wall, initial encounter (principal); Z87.891 Personal history of nicotine dependence; Z88.1 Allergy status to other antibiotic agents; W01.0XXA Fall on same level from slipping, tripping and stumbling without subsequent striking against object, initial encounter
CPT/HCPCS: 36415; 80053; 85025; 85610; 85730; 71260; 74177; 99284; 96374; J1171; Q9967